=== PATIENT | male | born 1945 | race Caucasian/White ===

== ENCOUNTER → 2019-03-30 | Outpatient (CLI) | payer MEDICARE, BC ==
--- NOTE | 2019-03-30 15:27 | CT ---
EXAMINATION TYPE: CT brain wo con DATE OF EXAM: 03/30/2019 COMPARISON: None HISTORY: 73-year-old male Left hand weakness x3 weeks. TECHNIQUE: Examination was done in axial plane without intravenous contrast. Coronal and sagittal r econstructions performed. CT DLP: 1094 mGycm Automated exposure control for dose reduction was used. FINDINGS: There is no evidence of acute intracranial hemorrhage, acute ischemic changes, mass, mass-effect, or extra-axial fluid collection. There is no effacement of cerebral sulci or basal subarachnoid cister ns. There is no hydrocephalus. There is no midline shift. Boothe-white matter distinction is preserv ed. Mild generalized cerebral cortical atrophy. Prominent skull base artifacts with some artifact extendi ng into the horizontal fissures. Complete opacification left maxillary sinus, left ethmoid air cells, left frontal sinus, and bilatera l sphenoid sinuses. There is some reactive new osteogenesis demonstrated. Mastoid air cells well pneu matized. Orbits and globes appear intact. IMPRESSION: 1. No acute intracranial abnormality seen. If concern for subtle acute to subacute ischemia, follow-u p MRI. 2. 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 Consider ENT referral.
--- NOTE | 2019-03-30 15:45 | US ---
EXAMINATION TYPE: US carotid duplex BILAT DATE OF EXAM: 03/30/2019 COMPARISON: NONE CLINICAL HISTORY: I25.10 CAD, I73.9 PAD, G45.9 TIA. EXAM MEASUREMENTS: RIGHT: Peak Systolic Velocity (PSV) cm/sec ----- Right CCA: 92.0 ----- Right ICA: 71.4 ----- Right ECA: 64.6 ICA/CCA ratio: 0.8 RIGHT: End Diastole cm/sec ----- Right CCA: 28.1 ----- Right ICA: 22.2 ----- Right ECA: 9.9 LEFT: Peak Systolic Velocity (PSV) cm/sec ----- Left CCA: 47.4 ----- Left ICA: 213.4 ----- Left ECA: 50.6 ICA/CCA ratio: 4.5 LEFT: End Diastole cm/sec ----- Left CCA: 12.9 ----- Left ICA: 84.6 ----- Left ECA: 23.0 VERTEBRALS (direction of flow): Right Vertebral: Antegrade Left Vertebral: Antegrade Rhythm: Normal Moderate atherosclerotic changes on right, severe atherosclerotic changes on left with elevated veloc ities suggestive of greater than 70% stenosis. Report called to the referring clinician. IMPRESSION: 1. Bilateral atherosclerotic changes with findings suggestive of severe greater than 70% stenosis of the proximal left ICA Criteria for Assigning % of Stenosis / Diameter reduction (Estimation based on the indirect measurements of the internal carotid artery velocities (ICA PSV). 1. Normal (no stenosis)=ICA PSV < 125 cm/s: ratio < 2.0: ICA EDV<40 cm/s. 2. Less than 50% stenosis=ICA PSV < 125 cm/s: ratio < 2.0: ICA EDV<40 cm/s. 3. 50 to 69% stenosis=ICA PSV of 125 to 230 cm/s: ration 2.0 ? 4.0: ICA EDV 40-100 cm/s. 4. Greater than 70% stenosis to near occlusion= ICA PSV > 230 cm/s: ratio > 4.0: ICA EDV > 100 cm/s. 5. Near occlusion= ICA PSV velocities may be low or undetectable: variable ratio and ICA EDV. 6. Total occlusion=unable to detect flow. A Callahan level critical message alert has been initiated for Ren Avelar MD via the [employer] Critical Results System on 03/30/2019 3:41 PM. This message alert has been sent to Ren Avelar MD vi a the preferences provided by the clinician for the receipt of Radiology Critical Findings. Message I D [id number].
--- NOTE | 2019-03-30 18:24 | ECHOF ---
Referral Reason:I25.10 CAD, I73.9 PAD, G45.9 TIA MEASUREMENTS -------- HEIGHT: 160.0 cm WEIGHT: 59.0 kg BP: 145/73 IVSd: 1.2 cm (0.6 - 1.1) LVIDd: 4.5 cm (3.9 - 5.3) LVPWd: 1.2 cm (0.6 - 1.1) IVSs: 1.7 cm LVIDs: 2.8 cm LVPWs: 1.4 cm LA Diam: 3.1 cm (2.7 - 3.8) RVIDd: 3.1 cm (< 3.3) LAESV Index (A-L): 20.68 ml/m Ao Diam: 3.2 cm (2.0 - 3.7) AV Cusp: 1.8 cm (1.5 - 2.6) EPSS: 1.4 cm MV E Les: 0.83 m/s MV DecT: 277 ms MV A Les: 0.79 m/s MV E/A Ratio: 1.04 AR PHT: 981 ms RAP: 5.00 mmHg RVSP: 40.01 mmHg MV EF SLOPE: 13.37 mm/s (70 - 150) MV EXCURSION: 10.43 mm (> 18.000) TAPSE: 15.97 mm FINDINGS -------- Sinus rhythm. This was a technically good study. The left ventricular size is normal. There is borderline concentric left ventricular hypertrophy. Overall left ventricular systolic function is normal with, an EF between 60 - 65 %. The diastolic filling pattern is normal for the age of the patient 12.61. The right ventricle is normal in size. Normal LA size by volume 22+/-6 ml/m2. The right atrium is normal in size. Interatrial and interventricular septum intact. There is mild aortic valve sclerosis. There is moderate aortic regurgitation. The mitral valve leaflets are mildly thickened. Mild mitral annular calcification present. There is trace to mild mitral regurgitation. Mild tricuspid regurgitation present. There is mild pulmonary hypertension. The right ventricular systolic pressure, as measured by Doppler, is 40.01mmHg. The pulmonic valve was not well visualized. The aortic root size is normal. Normal inferior vena cava with normal inspiratory collapse consistent with estimated right atrial pre ssure of 5 mmHg. There is no pericardial effusion. CONCLUSIONS -------- 1. Sinus rhythm. 2. This was a technically good study. 3. The left ventricular size is normal. 4. There is borderline concentric left ventricular hypertrophy. 5. Overall left ventricular systolic function is normal with, an EF between 60 - 65 %. 6. The diastolic filling pattern is normal for the age of the patient 12.61 7. The right ventricle is normal in size. 8. Normal LA size by volume 22+/-6 ml/m2. 9. The right atrium is normal in size. 10. Interatrial and interventricular septum intact. 11. There is mild aortic valve sclerosis. 12. There is moderate aortic regurgitation. 13. The mitral valve leaflets are mildly thickened. 14. Mild mitral annular calcification present. 15. There is trace to mild mitral regurgitation. 16. Mild tricuspid regurgitation present. 17. There is mild pulmonary hypertension. 18. The right ventricular systolic pressure, as measured by Doppler, is 40.01mmHg. 19. The pulmonic valve was not well visualized. 20. The aortic root size is normal. 21. Normal inferior vena cava with normal inspiratory collapse consistent with estimated right atrial pressure of 5 mmHg. 22. There is no pericardial effusion. [employer]EING [employer]OW BOSS: Linda Pinon RDCS
== END | disposition home or self-care (01) ==
LOC: RADCTMAIN 14:16
PROVIDERS: ATTEND Family Medicine
DX: G45.9 Transient cerebral ischemic attack, unspecified (principal); I08.3 Combined rheumatic disorders of mitral, aortic and tricuspid valves; I27.20 Pulmonary hypertension, unspecified; J34.89 Other specified disorders of nose and nasal sinuses
CPT/HCPCS: 70450; 93306; 93880

== ENCOUNTER 2022-05-15 08:19 | Emergency (ER) | payer MEDICARE, BC ==
[2022-05-15 08:29] VITALS: BP 146/74; PULSE 60; RESP 18; TEMP 97.5
--- NOTE | 2022-05-15 08:47 | ED ---
Skin/Abscess/FB HPI - General Chief complaint: Skin/Abscess/Foreign Body Stated complaint: Facial abcess Time Seen by Provider: 05/15/22 08:31 Source: patient, RN notes reviewed, old records reviewed Mode of arrival: ambulatory Limitations: no limitations - History of Present Illness Initial comments: Presents with a lesion to his chin for one month, has been on antibiotics 2 weeks ago and again prescribed clindamycin on the at urgent care. Does have an appointment with spreader on June 18. Denies any fevers, no drainage. Patient is a smoker. MD complaint: lesion -: month(s) (1) Severity scale (1-10): 6 Associated symptoms: denies other symptoms Treatments Prior to Arrival: antibiotic - Related Data Allergies Allergy/AdvReac Type Severity Reaction Status Date / Time No Known Allergies Allergy Verified 05/15/22 08:29 Review of Systems ROS Statement: Those systems with pertinent positive or pertinent negative responses have been documented in the HPI. ROS Other: All systems not noted in ROS Statement are negative. Past Medical History Past Medical History: Hyperlipidemia, Hypertension History of Any Multi-Drug Resistant Organisms: None Reported Additional Past Surgical History / Comment(s): Stents in legs Past Psychological History: No Psychological Hx Reported Smoking Status: Current every day smoker Past Alcohol Use History: Daily Past Drug Use History: None Reported General Exam Limitations: no limitations General appearance: alert, in no apparent distress Head exam: Present: atraumatic Eye exam: Absent: scleral icterus, conjunctival injection, periorbital swelling ENT exam: Present: mucous membranes moist Neck exam: Absent: tenderness, meningismus, full ROM, lymphadenopathy Respiratory exam: Present: normal lung sounds bilaterally. Absent: respiratory distress, accessory muscle use Cardiovascular Exam: Present: regular rate Neurological exam: Present: alert, oriented X3 Psychiatric exam: Present: normal affect, normal mood Skin exam: Present: warm, dry, normal color, other (1cm solid raised lesion under bottom lip , dried scale in center no erythema or drainage) Course Vital Signs 05/15/22 08:24 Temperature 97.5 F L Pulse Rate 60 Respiratory 18 Rate Blood Pressure 146/74 O2 Sat by Pulse 98 Oximetry Medical Decision Making - Medical Decision Making Patient presents with a lesion to his chin for one month, currently taking clindamycin which is a second course of antibiotics prescribed by urgent care on 05/07. Seen originally by his PCP and he does have an appointment with dermatology June 18. This appears to be a 1cm dermoid cyst that he tried to drain himself resulting in dried scale on lesion. No erythema or drainage or fluctuance. Was pt. sent in by a medical professional or institution? @ -No Did you speak to anyone other than the patient for history? @ -No Did you review nursing and triage notes? @ -Yes I agree Were old charts reviewed? @ -None Differential Diagnosis? @ -dermoid cyst, abscess, cellulitis EKG interpreted by me (3pts min.)? @ -Not applicable X-rays interpreted by me (1pt min.)? @ -Not applicable CT interpreted by me (1pt min.)? @ -Not applicable U/S interpreted by me (1pt. min.)? @ -Not applicable What testing was considered but not performed? (CT, X-rays, U/S, labs)? Why? @None What meds were considered but not given? Why? @ -Antibiotics however patient is currently taking clindamycin prescribed by urgent care Did you discuss the management of the patient with other professionals? @ -None Did you reconcile home meds? @ -No Was smoking cessation discussed for >3mins.? @ -Yes I did discuss with patient that healing times are prolonged in smokers and he should consider cessation Was critical care preformed (if so, how long)? @ -No Were there social determinants of health that impacted care today? How? (Homelessness, low income, unemployed, alcoholism, drug addiction, transportation, low edu. Level, literacy, decrease access to med. care, senior living, rehab)? @ -No Was there de-escalation of care discussed even if they declined? (Discuss DNR or withdrawal of care, Hospice)? @ -None What co-morbidities impacted this encounter? (DM, HTN, Smoking, COPD, CAD, Cancer, CVA, Hep., AIDS, mental health diagnosis, sleep apnea, morbid obesity)? @ -Hypertension, smoking Was patient admitted / discharged? @ -Discharged Undiagnosed new problem with uncertain prognosis? @ -No Drug Therapy requiring intensive monitoring for toxicity (Heparin, Nitro, Insulin, Cardizem)? @ -No Were any procedures done? @ -No Diagnosis/symptom? @ -Dermoid cyst Acute, or Chronic, or Acute on Chronic? @ -Acute Uncomplicated (without systemic symptoms) or Complicated (systemic symptoms)? @ -Uncomplicated Side effects of treatment? @ -none Exacerbation, Progression, or Severe Exacerbation] @ -none Poses a threat to life or bodily function? @ -No Disposition Clinical Impression: Lesion of face Disposition: HOME SELF-CARE Condition: Good Instructions (If sedation given, give patient instructions): Cyst (ED) Additional Instructions: Continue taking the antibiotics as prescribed by urgent care. Follow-up with dermatology as scheduled June 18. Do not pick at lesion. Return to the emergency room with any drainage, increased pain and swelling or fevers. Is patient prescribed a controlled substance at d/c from ED?: No Referrals: Ren Avelar MD [Primary Care Provider] - 1-2 days Time of Disposition: 08:47
== END 2022-05-15 08:54 | disposition home or self-care (01) ==
LOC: EC 08:19
DX: L02.01 Cutaneous abscess of face (principal); I10 Essential (primary) hypertension; F17.200 Nicotine dependence, unspecified, uncomplicated
CPT/HCPCS: 99282

== ENCOUNTER → 2023-04-15 | Outpatient (CLI) | payer MEDICARE ==
--- NOTE | 2023-04-16 09:14 | CA ---
Transthoracic Echo Report Name: Maximino Briones Age: 77 Gender: M : 1945 Exam Date: 04/15/2023 13:29 Exam Location: [place] [facility] Ht (in): 63 Wt (lb): 120 Ordering Physician: Ren Avelar MD Attending/Referring Phys: Rea Lloyd [facility] Refueling Rampman Rylie Bean [facility] Procedure CPT: Indications: I25.10 CARDIOVASCULAR DISEASE UNSPECIFIED Cardiac Hx: Technical Quality: Fair Contrast 1: Total Dose (mL): Contrast 2: Total Dose (mL): MEASUREMENTS (Male / Female) Normal Values 2D ECHO LV Diastolic Diameter PLAX 5.4 cm 4.2 - 5.9 / 3.9 - 5.3 cm LV Systolic Diameter PLAX 4.8 cm IVS Diastolic Thickness 1.0 cm 0.6 - 1.0 / 0.6 - 0.9 cm LVPW Diastolic Thickness 1.0 cm 0.6 - 1.0 / 0.6 - 0.9 cm LV Relative Wall Thickness 0.4 LVOT Diameter 2.0 cm LV Diastolic Volume MOD BP 90.5 cm??? 67 - 155 / 56 - 104 cm??? LV Systolic Volume MOD BP 56.8 cm??? 22 - 58 / 19 - 49 cm??? LV Ejection Fraction MOD BP 37.3 % >= 55 % LV Cardiac Index MOD BP 2080.0 cm???/min???m??? LV Diastolic Volume MOD 4C 88.6 cm??? LV Systolic Volume MOD 4C 52.3 cm??? LV Ejection Fraction MOD 4C 40.9 % LV Cardiac Index MOD 4C 2234.7 cm???/min???m??? LV Diastolic Length 4C 6.9 cm LV Systolic Length 4C 6.4 cm LV Diastolic Volume MOD 2C 90.6 cm??? LV Systolic Volume MOD 2C 61.4 cm??? LV Ejection Fraction MOD 2C 32.2 % LV Cardiac Index MOD 2C 1799.1 cm???/min???m??? LV Diastolic Length 2C 7.1 cm LV Systolic Length 2C 6.5 cm LA Volume 80.3 cm??? 18 - 58 / 22 - 52 cm??? LA Volume Index 51.6 cm???/m??? 16 - 28 cm???/m??? Ascending Aorta Diameter 3.3 cm M-MODE Aortic Root Diameter MM 2.9 cm LA Systolic Diameter MM 4.9 cm LA Ao Ratio MM 1.7 AV Cusp Separation MM 1.2 cm DOPPLER AV Peak Velocity 128.1 cm/s AV Peak Gradient 6.6 mmHg AV Mean Velocity 82.7 cm/s AV Mean Gradient 3.2 mmHg AV Velocity Time Integral 20.3 cm AI Peak Velocity 435.1 cm/s AI Peak Gradient 75.7 mmHg AI Pressure Half Time 717.4 ms LVOT Peak Velocity 116.3 cm/s LVOT Peak Gradient 5.4 mmHg LVOT Velocity Time Integral 19.8 cm LVOT Stroke Volume 64.8 cm??? LVOT Stroke Volume Index 41.6 ml/m??? LVOT Cardiac Index 3995.1 cm???/min???m??? AV Area Cont Eq vti 3.2 cm??? AV Area Cont Eq pk 3.0 cm??? Mitral E Point Velocity 107.3 cm/s MV Deceleration Time 96.1 ms LV E' Lateral Velocity 5.9 cm/s Mitral E to LV E' Lateral Ratio 18.2 LV E' Septal Velocity 5.1 cm/s Mitral E to LV E' Septal Ratio 21.2 TR Peak Velocity 315.8 cm/s TR Peak Gradient 39.9 mmHg Right Atrial Pressure 3.0 mmHg Pulmonary Artery Systolic Pressu 42.9 mmHg Right Ventricular Systolic Press 42.9 mmHg FINDINGS Left Ventricle Left ventricular wall thickness at upper limits of normal. Left ventricular cavity size normal. Left ventricular ejection fraction is estimated at 35-40%. Moderately decreased left ventricular ejection fraction. Right Ventricle Moderate right ventricular dilatation. Moderate pulmonary hypertension. Right Atrium Severe right atrial dilatation. Left Atrium Severely increased left atrial volume. Mildly increased left atrial area. Mitral Valve Mitral valve thickened. Mild mitral annular calcification. Mild mitral regurgitation. Aortic Valve Trileaflet aortic valve. Diffuse thickening of the aortic valve cusps with reduced excursion. Moderate aortic regurgitation. Aortic valve sclerosis. Tricuspid Valve Structurally normal tricuspid valve. Mild tricuspid regurgitation. Pulmonic Valve Structurally normal pulmonic valve. Pericardium Minimal pericardial effusion (normal variant). Aorta Normal size aortic root and proximal ascending aorta. CONCLUSIONS Moderate LV systolic dysfunction Moderate pulmonary hypertension Mild mitral regurgitation with moderate aortic regurgitation Previewed by: Dr. Aubrey Connell MD (Electronically Signed) Final Date: 16 April 2023 09:13
== END | disposition home or self-care (01) ==
LOC: RADECHMAIN 13:26
PROVIDERS: ATTEND Family Medicine
DX: I25.10 Atherosclerotic heart disease of native coronary artery without angina pectoris (principal); I08.0 Rheumatic disorders of both mitral and aortic valves; I27.20 Pulmonary hypertension, unspecified
CPT/HCPCS: 93306

== ENCOUNTER 2023-05-07 16:28 | Inpatient (IN) | payer MEDICARE ==
[2023-05-07] MEDS ORDERED: SODIUM CHLORIDE 0.9% 500 ML 500 ML IV ONE (18:04)
[2023-05-07 18:53] LABS: Basophils % (A) 0 %; Eosinophils # (A) 0.1 k/uL (0-0.7); Eosinophils % (A) 1 %; HCT 39.4 % (39.0-53.0); HGB 13.4 gm/dL (13.0-17.5); Lymphocytes # (A) 1.7 k/uL (1.0-4.8); Lymphocytes % (A) 14 %; MCH 33.3 pg (25.0-35.0); MCV 97.7 fL (80.0-100.0); Mean Platelet Volume 8.6; Monocytes # (A) 0.8 k/uL (0-1.0); Monocytes % (A) 7 %; Neutrophils # (A) 9.3 k/uL (1.3-7.7); Neutrophils % (A) 77 %; Platelet Count 275 k/uL (150-450); RBC 4.03 m/uL (4.30-5.90); RDW 12.6 % (11.5-15.5); WBC 12.1 k/uL (3.8-10.6)
--- NOTE | 2023-05-07 19:00 | XR ---
EXAMINATION TYPE: XR chest 2V DATE OF EXAM: 05/07/2023 COMPARISON: None HISTORY: 77-year-old male confusion, cough, congestion, altered mental status TECHNIQUE: PA and lateral views FINDINGS: Heart upper limits of normal in size. At this regard calcifications. Old right-sided rib fracture def ormities. Mild interstitial prominence of the chronic appearance. No consolidation or pleural effusio n. IMPRESSION: Borderline heart size and suspected underlying COPD. No definite acute process.
[2023-05-07 19:08] LABS: ALT 47 U/L (4-49); AST 31 U/L (17-59); African American GFR (CKD) 60 (>60 ml/min/1.73 sqM); Albumin 3.6 g/dL (3.5-5.0); Alcohol <10 mg/dL; Alkaline Phosphatase 74 U/L (38-126); Anion Gap 12 mmol/L; Blood Urea Nitrogen 27 mg/dL (9-20); Calcium 8.9 mg/dL (8.4-10.2); Carbon Dioxide 23 mmol/L (22-30); Chloride 107 mmol/L (98-107); Glucose 100 mg/dL (74-99); Non-African American GFR(CKD) 52 (>60 ml/min/1.73 sqM); Potassium 4.1 mmol/L (3.5-5.1); Sodium 142 mmol/L (137-145); Total Bilirubin 0.3 mg/dL (0.2-1.3); Total Protein 6.6 g/dL (6.3-8.2)
[2023-05-07 19:09] LABS: Partial Thromboplastin Time 24.1 sec (22.0-30.0); Prothrombin Time 10.9 sec (10.0-12.5)
--- NOTE | 2023-05-07 19:10 | ED ---
General Adult HPI - General Chief complaint: Neuro Symptoms/Deficit Stated complaint: FLU/COVID SYMPTOMS Time Seen by Provider: 05/07/23 17:52 Source: patient, family, RN notes reviewed, old records reviewed Mode of arrival: ambulatory Limitations: no limitations - History of Present Illness Initial comments: 77 yo male presenting with acute confusion. Patient has had cough cold symptoms for the past several weeks. According to the son who is able to give detailed history today he seemed to be more confused. This is an acute change. Patient is alert and oriented 3 in the time my evaluation. He denies headache. Denies pain complaint. Denies focal numbness or weakness. Speech is clear. - Related Data Allergies Allergy/AdvReac Type Severity Reaction Status Date / Time No Known Allergies Allergy Verified 05/15/22 08:29 Review of Systems ROS Statement: Those systems with pertinent positive or pertinent negative responses have been documented in the HPI. ROS Other: All systems not noted in ROS Statement are negative. Past Medical History Past Medical History: Hyperlipidemia, Hypertension History of Any Multi-Drug Resistant Organisms: None Reported Additional Past Surgical History / Comment(s): Stents in legs Past Psychological History: No Psychological Hx Reported Smoking Status: Current every day smoker Past Alcohol Use History: Daily Past Drug Use History: None Reported General Exam Limitations: no limitations General appearance: alert, in no apparent distress Head exam: Present: atraumatic, normocephalic Eye exam: Present: normal appearance, PERRL ENT exam: Present: mucous membranes dry Neck exam: Present: normal inspection. Absent: tenderness, meningismus Respiratory exam: Present: normal lung sounds bilaterally. Absent: respiratory distress, wheezes Cardiovascular Exam: Present: regular rate, normal rhythm GI/Abdominal exam: Present: soft. Absent: distended, tenderness Extremities exam: Present: normal inspection, normal capillary refill Neurological exam: Present: alert, oriented X3, CN II-XII intact. Absent: motor sensory deficit Psychiatric exam: Present: normal affect, normal mood Skin exam: Present: warm, dry, intact Course Vital Signs 05/07/23 16:38 Temperature 98.7 F Pulse Rate 66 Respiratory 16 Rate Blood Pressure 145/79 O2 Sat by Pulse 99 Oximetry Medical Decision Making - Medical Decision Making Was pt. sent in by a medical professional or institution (, PA, PUMP ATTENDANT, urgent care, hospital, or halfway...) When possible be specific @ -[No] Did you speak to anyone other than the patient for history (EMS, parent, family, police, friend...)? What history was obtained from this source @ -[No] Did you review nursing and triage notes (agree or disagree)? Why? @ -[I reviewed and agree with nursing and triage notes] Were old charts reviewed (outside hosp., previous admission, EMS record, old EKG, old radiological studies, urgent care reports/EKG's, halfway records)? Report findings @ -[No old charts were reviewed] Differential Diagnosis (chest pain, altered mental status, abdominal pain women, abdominal pain men, vaginal bleeding, weakness, fever, dyspnea, syncope, headache, dizziness, GI bleed, back pain, seizure, CVA, palpatations, mental health, musculoskeletal)? @ -Differential Altered Mental Status: Hypoglycemia, DKA, hypercapnia, ETOH, overdose, CO poisoning, trauma, myxedema coma, HTN encephalopathy, infection, encephalitis, psychosis, intercranial hemorrhage, hepatic encephalopathy, meningitis, CVA, this is not meant to be an all-inclusive list EKG interpreted by me (3pts min.). @ Sinus rhythm rate of 61, IA interval 173, QRS duration 90, QTC 414 X-rays interpreted by me (1pt min.). @ -CXR neg for acute process CT interpreted by me (1pt min.). @ -CT brain neg for acute ICH U/S interpreted by me (1pt. min.). @ -[None done] What testing was considered but not performed or refused? (CT, X-rays, U/S, labs)? Why? @ -[None] What meds were considered but not given or refused? Why? @ -[None] Did you discuss the management of the patient with other professionals (professionals i.e. , PA, PUMP ATTENDANT, lab, RT, psych nurse, social media marketer, public health nutritionist, teacher, public information officer, welfare case worker)? Give summary @ -Naomi from [facility] Was smoking cessation discussed for >3mins.? @ -[No] Was critical care preformed (if so, how long)? @ -[No] Were there social determinants of health that impacted care today? How? (Homelessness, low income, unemployed, alcoholism, drug addiction, transportation, low edu. Level, literacy, decrease access to med. care, longterm, rehab)? @ -[No] Was there de-escalation of care discussed even if they declined (Discuss DNR or withdrawal of care, Hospice)? DNR status @ -[No] What co-morbidities impacted this encounter? (DM, HTN, Smoking, COPD, CAD, Canc er, CVA, ARF, Chemo, Hep., AIDS, mental health diagnosis, sleep apnea, morbid obesity)? @ - Was patient admitted / discharged? Hospital course, mention meds given and route, prescriptions, significant lab abnormalities, going to OR and other pertinent info. @ -77 yo male with Acute AMS. pt has no focal findings on exam. VSS. Labs wnl with the exception of trop 0.035. this level will be trended. Ct brain without acute process. Pt does test positive for COVID. Will be admitted for monitoring and trended cardiac enzymes Undiagnosed new problem with uncertain prognosis? @ -[No] Drug Therapy requiring intensive monitoring for toxicity (Heparin, Nitro, Insulin, Cardizem)? @ -[No] Were any procedures done? @ -[No] Diagnosis/symptom? @ -[AMS, COVID, trop elevated Acute, or Chronic, or Acute on Chronic? @ -acute Uncomplicated (without systemic symptoms) or Complicated (systemic symptoms)? @ -[complicated Side effects of treatment? @ -[No] Exacerbation, Progression, or Severe Exacerbation? @ -[No] Poses a threat to life or bodily function? How? (Chest pain, [place], [place], pneumonia, PE, COPD, DKA, ARF, appy, cholecystitis, CVA, Diverticulitis, Homicidal, Suicidal, threat to staff... and all critical care pts) @ -[yes, COVID, trop elevated - Lab Data Result diagrams: 05/07/23 18:40 05/07/23 18:40 Lab Results 05/07/23 05/07/23 05/07/23 Range/Units 18:40 18:40 18:40 WBC 12.1 H (3.8-10.6) k/uL RBC 4.03 L (4.30-5.90) m/uL Hgb 13.4 (13.0-17.5) gm/dL Hct 39.4 (39.0-53.0) % MCV 97.7 (80.0-100.0) fL MCH 33.3 (25.0-35.0) pg MCHC 34.0 (31.0-37.0) g/dL RDW 12.6 (11.5-15.5) % Plt Count 275 (150-450) k/uL MPV 8.6 Neutrophils % 77 % Lymphocytes % 14 % Monocytes % 7 % Eosinophils % 1 % Basophils % 0 % Neutrophils # 9.3 H (1.3-7.7) k/uL Lymphocytes # 1.7 (1.0-4.8) k/uL Monocytes # 0.8 (0-1.0) k/uL Eosinophils # 0.1 (0-0.7) k/uL Basophils # 0.0 (0-0.2) k/uL PT 10.9 (10.0-12.5) sec INR 1.0 (<1.2) APTT 24.1 (22.0-30.0) sec Sodium 142 (137-145) mmol/L Potassium 4.1 (3.5-5.1) mmol/L Chloride 107 (98-107) mmol/L Carbon Dioxide 23 (22-30) mmol/L Anion Gap 12 mmol/L BUN 27 H (9-20) mg/dL Creatinine 1.32 H (0.66-1.25) mg/dL Est GFR (CKD-EPI)AfAm 60 (>60 ml/min/1.73 sqM) Est GFR (CKD-EPI)NonAf 52 (>60 ml/min/1.73 sqM) Glucose 100 H (74-99) mg/dL POC Glucose (mg/dL) (70-110) mg/dL POC Glu Flight Test Shop Mechanic ID Calcium 8.9 (8.4-10.2) mg/dL Total Bilirubin 0.3 (0.2-1.3) mg/dL AST 31 (17-59) U/L ALT 47 (4-49) U/L Alkaline Phosphatase 74 (38-126) U/L Troponin I (0.000-0.034) ng/mL Total Protein 6.6 (6.3-8.2) g/dL Albumin 3.6 (3.5-5.0) g/dL Urine Color Urine Appearance (Clear) Urine pH (5.0-8.0) Ur Specific [place] (1.001-1.035) Urine Protein (Negative) Urine Glucose (UA) (Negative) Urine Ketones (Negative) Urine Blood (Negative) Urine Nitrite (Negative) Urine Bilirubin (Negative) Urine Urobilinogen (<2.0) mg/dL Ur Leukocyte Esterase (Negative) Urine RBC (0-5) /hpf Urine WBC (0-5) /hpf Urine Bacteria (None) /hpf Urine Mucus (None) /hpf Urine Opiates Screen (NotDetected) Ur Oxycodone Screen (NotDetected) Urine Methadone Screen (NotDetected) Ur Barbiturates Screen (NotDetected) U Tricyclic Antidepress (NotDetected) Ur Phencyclidine Scrn (NotDetected) Ur Amphetamines Screen (NotDetected) U Methamphetamines Scrn (NotDetected) U Benzodiazepines Scrn (NotDetected) Urine Cocaine Screen (NotDetected) U Marijuana (THC) Screen (NotDetected) Ur Drug Screen Comment Serum Alcohol <10 mg/dL Influenza Type A (PCR) (Not Detectd) Influenza Type B (PCR) (Not Detectd) RSV (PCR) (Not Detectd) SARS-CoV-2 (PCR) (Not Detectd) 05/07/23 05/07/23 05/07/23 Range/Units 18:40 18:40 18:44 WBC (3.8-10.6) k/uL RBC (4.30-5.90) m/uL Hgb (13.0-17.5) gm/dL Hct (39.0-53.0) % MCV (80.0-100.0) fL MCH (25.0-35.0) pg MCHC (31.0-37.0) g/dL RDW (11.5-15.5) % Plt Count (150-450) k/uL MPV Neutrophils % % Lymphocytes % % Monocytes % % Eosinophils % % Basophils % % Neutrophils # (1.3-7.7) k/uL Lymphocytes # (1.0-4.8) k/uL Monocytes # (0-1.0) k/uL Eosinophils # (0-0.7) k/uL Basophils # (0-0.2) k/uL PT (10.0-12.5) sec INR (<1.2) APTT (22.0-30.0) sec Sodium (137-145) mmol/L Potassium (3.5-5.1) mmol/L Chloride (98-107) mmol/L Carbon Dioxide (22-30) mmol/L Anion Gap mmol/L BUN (9-20) mg/dL Creatinine (0.66-1.25) mg/dL Est GFR (CKD-EPI)AfAm (>60 ml/min/1.73 sqM) Est GFR (CKD-EPI)NonAf (>60 ml/min/1.73 sqM) Glucose (74-99) mg/dL POC Glucose (mg/dL) (70-110) mg/dL POC Glu Flight Test [employer] Mechanic ID Calcium (8.4-10.2) mg/dL Total Bilirubin (0.2-1.3) mg/dL AST (17-59) U/L ALT (4-49) U/L Alkaline Phosphatase (38-126) U/L Troponin I 0.035 H* (0.000-0.034) ng/mL Total Protein (6.3-8.2) g/dL Albumin (3.5-5.0) g/dL Urine Color Yellow Urine Appearance Clear (Clear) Urine pH 5.5 (5.0-8.0) Ur Specific [place] 1.029 (1.001-1.035) Urine Protein Trace H (Negative) Urine Glucose (UA) Negative (Negative) Urine Ketones Negative (Negative) Urine Blood Moderate H (Negative) Urine Nitrite Negative (Negative) Urine Bilirubin Negative (Negative) Urine Urobilinogen <2.0 (<2.0) mg/dL Ur Leukocyte Esterase Negative (Negative) Urine RBC 163 H (0-5) /hpf Urine WBC 1 (0-5) /hpf Urine Bacteria Rare H (None) /hpf Urine Mucus Rare H (None) /hpf Urine Opiates Screen Detected H (NotDetected) Ur Oxycodone Screen Not Detected (NotDetected) Urine Methadone Screen Not Detected (NotDetected) Ur Barbiturates Screen Not Detected (NotDetected) U Tricyclic Antidepress Not Detected (NotDetected) Ur Phencyclidine Scrn Not Detected (NotDetected) Ur Amphetamines Screen Not Detected (NotDetected) U Methamphetamines Scrn Not Detected (NotDetected) U Benzodiazepines Scrn Not Detected (NotDetected) Urine Cocaine Screen Not Detected (NotDetected) U Marijuana (THC) Screen Detected H (NotDetected) Ur Drug Screen Comment SEE COMMENT Serum Alcohol mg/dL Influenza Type A (PCR) Not Detected (Not Detectd) Influenza Type B (PCR) Not Detected (Not Detectd) RSV (PCR) Not Detected (Not Detectd) SARS-CoV-2 (PCR) Detected A (Not Detectd) 05/07/23 Range/Units 19:27 WBC (3.8-10.6) k/uL RBC (4.30-5.90) m/uL Hgb (13.0-17.5) gm/dL Hct (39.0-53.0) % MCV (80.0-100.0) fL MCH (25.0-35.0) pg MCHC (31.0-37.0) g/dL RDW (11.5-15.5) % Plt Count (150-450) k/uL MPV Neutrophils % % Lymphocytes % % Monocytes % % Eosinophils % % Basophils % % Neutrophils # (1.3-7.7) k/uL Lymphocytes # (1.0-4.8) k/uL Monocytes # (0-1.0) k/uL Eosinophils # (0-0.7) k/uL Basophils # (0-0.2) k/uL PT (10.0-12.5) sec INR (<1.2) APTT (22.0-30.0) sec Sodium (137-145) mmol/L Potassium (3.5-5.1) mmol/L Chloride (98-107) mmol/L Carbon Dioxide (22-30) mmol/L Anion Gap mmol/L BUN (9-20) mg/dL Creatinine (0.66-1.25) mg/dL Est GFR (CKD-EPI)AfAm (>60 ml/min/1.73 sqM) Est GFR (CKD-EPI)NonAf (>60 ml/min/1.73 sqM) Glucose (74-99) mg/dL POC Glucose (mg/dL) 129 H (70-110) mg/dL POC Glu [employer] Test [employer] Mechanic ID Kumari, Donyele Calcium (8.4-10.2) mg/dL Total Bilirubin (0.2-1.3) mg/dL AST (17-59) U/L ALT (4-49) U/L Alkaline Phosphatase (38-126) U/L Troponin I (0.000-0.034) ng/mL Total Protein (6.3-8.2) g/dL Albumin (3.5-5.0) g/dL Urine Color Urine Appearance (Clear) Urine pH (5.0-8.0) Ur Specific [place] (1.001-1.035) Urine Protein (Negative) Urine Glucose (UA) (Negative) Urine Ketones (Negative) Urine Blood (Negative) Urine Nitrite (Negative) Urine Bilirubin (Negative) Urine Urobilinogen (<2.0) mg/dL Ur Leukocyte Esterase (Negative) Urine RBC (0-5) /hpf Urine WBC (0-5) /hpf Urine Bacteria (None) /hpf Urine Mucus (None) /hpf Urine Opiates Screen (NotDetected) Ur Oxycodone Screen (NotDetected) Urine Methadone Screen (NotDetected) Ur Barbiturates Screen (NotDetected) U Tricyclic Antidepress (NotDetected) Ur Phencyclidine Scrn (NotDetected) Ur Amphetamines Screen (NotDetected) U Methamphetamines Scrn (NotDetected) U Benzodiazepines Scrn (NotDetected) Urine Cocaine Screen (NotDetected) U Marijuana (THC) Screen (NotDetected) Ur Drug Screen Comment Serum Alcohol mg/dL Influenza Type A (PCR) (Not Detectd) Influenza Type B (PCR) (Not Detectd) RSV (PCR) (Not Detectd) SARS-CoV-2 (PCR) (Not Detectd) Disposition Clinical Impression: AMS (altered mental status), COVID-19, Elevated troponin Disposition: ADMITTED IP TO THIS HOSP Condition: Stable Is patient prescribed a controlled substance at d/c from ED?: No Referrals: Ren Avelar MD [Primary Care Provider] - 1-2 days Time of Disposition: 20:35
[2023-05-07 19:29] LABS: Glucose,Whole Blood 129 mg/dL (70-110)
--- NOTE | 2023-05-07 19:43 | CT ---
EXAMINATION TYPE: CT brain wo con CT DLP: 1085.8 mGycm, Automated exposure control for dose reduction was used. DATE OF EXAM: 05/07/2023 7:32 PM COMPARISON: 03/30/2019.. CLINICAL INDICATION:Male, 77 years old with history of Altered mental status, TECHNIQUE: Brain: Axial CT images of the brain were obtained with coronal and sagittal reformats created and rev iewed. Contrast used: None. Oral contrast used: None. FINDINGS: Brain: Extra-axial spaces: No abnormal extra-axial fluid collections. Ventricular system: Within normal limits Cerebral parenchyma: No acute intraparenchymal hemorrhage or mass effect. The melton-white junction is well differentiated. Cerebellum: Unremarkable. Mass effect: No evidence of midline shift. Intracranial vasculature: Atherosclerotic calcifications of the intracranial vessels. Soft tissues: Normal. Calvarium/osseous structures: No depressed skull fracture. Paranasal sinuses and mastoid air cells: Moderate paranasal sinus disease. Visualized orbits: Orbital contents are intact. IMPRESSION: 1. No acute intracranial process. 2. Moderate paranasal sinus disease.
[2023-05-07 20:14] LABS: Appearance,Urine Clear (Clear); Bacteria,Urine Rare /hpf; Bilirubin,Urine Negative (Negative); Blood,Urine Moderate (Negative); Color,Urine Yellow; Glucose,Urine (UA) Negative (Negative); Ketones,Urine Negative (Negative); Leukocyte Esterase,Urine Negative (Negative); Mucus,Urine Rare /hpf; Nitrite,Urine Negative (Negative); PH, Urine 5.5 (5.0-8.0); Protein,Urine Trace (Negative); RBC,Urine 163 /hpf (0-5); Specific Gravity,Urine 1.029 (1.001-1.035); Urobilinogen,Urine <2.0 mg/dL (<2.0); WBC,Urine 1 /hpf (0-5)
[2023-05-07 20:19] LABS: Cocaine Screen,Urine Not Detected (NotDetected); Opiate Screen,Urine Detected (NotDetected); Phencyclidine Screen,Urine Not Detected (NotDetected); Urn Cannabinoid Scrn Detected (NotDetected)
[2023-05-07 20:20] LABS: Amphetamine Screen,Urine Not Detected (NotDetected); Barbiturate Screen,Urine Not Detected (NotDetected); Benzodiazepines Screen,Urine Not Detected (NotDetected); Methadone Screen, Urine Not Detected (NotDetected); Oxycodone Screen, Urine Not Detected (NotDetected); Tricyclic Antidepressant,Urine Not Detected (NotDetected)
[2023-05-07] MEDS ORDERED: ASPIRIN 325 MG TAB PO STA (20:27)
[2023-05-07] MEDS ORDERED: ACETAMINOPHEN TAB 325 MG TAB PO PRN (20:27)
[2023-05-07] MEDS ORDERED: NALOXONE 0.4 MG/ML 1 ML VIAL IV PRN (20:27)
[2023-05-07] MEDS: SODIUM CHLORIDE 0.9% 1,000 ML IV SCH (21:42)
[2023-05-08] MEDS ORDERED: CALCIUM CARBONATE 500 MG CHEWABLE PO PRN (09:39)
[2023-05-08] MEDS ORDERED: ONDANSETRON 4 MG/2 ML VIAL IVP PRN (09:39)
[2023-05-08] MEDS ORDERED: NALOXONE 0.4 MG/ML 1 ML VIAL IV PRN (09:39)
[2023-05-08] MEDS ORDERED: MAG HYDROX/AL HYDROX/SIMETH 30 ML CUP PO PRN (09:39)
[2023-05-08] MEDS ORDERED: MELATONIN 3 MG TABLET PO PRN (09:39)
[2023-05-08] MEDS: SODIUM CHLORIDE 0.9% 1,000 ML IV SCH ×2 (10:12→20:59)
--- NOTE | 2023-05-08 14:17 | P.HPIM ---
History of Present Illness H&P Date: 05/08/23 History of present illness; patient is 77-year-old gentleman with past medical h istory significant for hypertension, hyperlipidemia who presented to the ER because of confusion. Patient has been dealing with cold like symptoms for the last 2 weeks. Patient requiring of nasal congestion. Denies any fever or chills. No complaint of shortness of breath. Denies any chest pain or palpitations. Denies any nausea, vomiting abdominal pain. Today patient son noticed that the patient was more confused. There was no complain of any weakness of any extremity. No complaints of slurred speech. Patient's son did not notice any facial droop. Because his acute confusion, patient brought to the ER Initial lab work done in the ER showed to be placed on Premarin, hemoglobin 13.4 , platelet count 275 sodium 140, potassium 4.1, chloride 107, BUN 27, creatinine 1.32, glucose 100 troponin 0.035 UA done showed nitrite negative, leukocyte esterase negative, Urine drug screen positive for opioids and marijuana Influenza A not detected Influenza B not detected RSV not detected COVID-19 detected EKG done in the ER showed heart rate of 61 , no ST segment elevation or depression seen, no T-wave inversions seen. Chest x-ray done in the ER showed borderline heart size and suspected underlying COPD CT head done showed no acute intracranial process Patient admitted to internal medicine service REVIEW OF SYSTEMS: CONSTITUTIONAL: No fever, no malaise, no fatigue. HEENT: No recent visual problems or hearing problems. Denied any sore throat. CARDIOVASCULAR: No chest pain, orthopnea, PND, no palpitations, no syncope. PULMONARY: No shortness of breath, no cough, no hemoptysis. GASTROINTESTINAL: No diarrhea, no nausea, no vomiting, no abdominal pain. NEUROLOGICAL: No headaches, no weakness, no numbness. HEMATOLOGICAL: Denies any bleeding or petechiae. GENITOURINARY: Denies any burning micturition, frequency, or urgency. MUSCULOSKELETAL/RHEUMATOLOGICAL: Denies any joint pain, swelling, or any muscle pain. ENDOCRINE: Denies any polyuria or polydipsia. The rest of the 14-point review of systems is negative. PHYSICAL EXAMINATION: GENERAL: The patient is alert and oriented x 2-3, not in any acute distress. Well developed, well nourished. HEENT: Pupils are round and equally reacting to light. EOMI. No scleral icterus. No conjunctival pallor. Normocephalic, atraumatic. No pharyngeal erythema. No thyromegaly. CARDIOVASCULAR: S1 and S2 present. No murmurs, rubs, or gallops. PULMONARY: Chest is clear to auscultation, no wheezing or crackles. ABDOMEN: Soft, nontender, nondistended, normoactive bowel sounds. No palpable organomegaly. MUSCULOSKELETAL: No joint swelling or deformity. EXTREMITIES: No cyanosis, clubbing, or pedal edema. NEUROLOGICAL: Gross neurological examination did not reveal any focal deficits. SKIN: No rashes. Assessment and plan Acute metabolic encephalopathy COVID-19 infection Elevated troponin Hypertension Hyperlipidemia Monitor vital signs Monitor CBC Monitor CMP Continue telemetry monitoring Trend troponins Continue droplet plus isolation for COVID-19 infection Encourage use of I-S Aggressive bronchopulmonary hygiene Ordered breathing treatments Patient does not meet criteria for any COVID-19 related therapy at this time Resume home meds Consult neurology Consult cardiology Labs and medication were reviewed.. Continue same treatment. Continue with symptomatic treatment. Resume home medication. Monitor labs and vitals. DVT and GI prophylaxis. Further recommendations as per clinical course of the katerina ent Dictation was produced using [employer] dictation software. please excuse any grammatical, word or spelling errors. Past Medical History Past Medical History: Hyperlipidemia, Hypertension History of Any Multi-Drug Resistant Organisms: None Reported Additional Past Surgical History / Comment(s): Stents in legs Past Psychological History: No Psychological Hx Reported Smoking Status: Current every day smoker Past Alcohol Use History: Daily Past Drug Use History: None Reported Medications and Allergies Home Medications Medication Instructions Recorded Confirmed Type Simvastatin [Zocor] 40 mg PO HS 05/07/23 05/07/23 History ramipriL [Altace] 10 mg PO HS 05/07/23 05/07/23 History Allergies Allergy/AdvReac Type Severity Reaction Status Date / Time No Known Allergies Allergy Verified 05/07/23 21:07 Physical Exam Vitals: Vital Signs Temp Pulse Resp BP Pulse Ox 05/08/23 06:32 97.8 F 51 L 18 109/57 92 L 05/08/23 04:30 65 19 112/65 92 L 05/08/23 02:30 81 18 99/57 97 05/08/23 00:00 51 L 18 117/65 95 05/07/23 22:46 52 L 18 121/61 98 05/07/23 16:38 98.7 F 66 16 145/79 99 Intake and Output 05/07/23 05/08/23 05/08/23 22:59 06:59 14:59 Other: Weight 54.431 kg Results CBC & Chem 7: 05/07/23 18:40 05/07/23 18:40 Labs: Abnormal Lab Results - Last 24 Hours (Table) 05/07/23 05/07/23 05/07/23 Range/Units 18:40 18:40 18:40 WBC 12.1 H (3.8-10.6) k/uL RBC 4.03 L (4.30-5.90) m/uL Neutrophils # 9.3 H (1.3-7.7) k/uL BUN 27 H (9-20) mg/dL Creatinine 1.32 H (0.66-1.25) mg/dL Glucose 100 H (74-99) mg/dL POC Glucose (mg/dL) (70-110) mg/dL Troponin I 0.035 H* (0.000-0.034) ng/mL Urine Protein (Negative) Urine Blood (Negative) Urine RBC (0-5) /hpf Urine Bacteria (None) /hpf Urine Mucus (None) /hpf Urine Opiates Screen (NotDetected) U Marijuana (THC) Screen (NotDetected) SARS-CoV-2 (PCR) (Not Detectd) 05/07/23 05/07/23 05/07/23 Range/Units 18:40 18:44 19:27 WBC (3.8-10.6) k/uL RBC (4.30-5.90) m/uL Neutrophils # (1.3-7.7) k/uL BUN (9-20) mg/dL Creatinine (0.66-1.25) mg/dL Glucose (74-99) mg/dL POC Glucose (mg/dL) 129 H (70-110) mg/dL Troponin I (0.000-0.034) ng/mL Urine Protein Trace H (Negative) Urine Blood Moderate H (Negative) Urine RBC 163 H (0-5) /hpf Urine Bacteria Rare H (None) /hpf Urine Mucus Rare H (None) /hpf Urine Opiates Screen Detected H (NotDetected) U Marijuana (THC) Screen Detected H (NotDetected) SARS-CoV-2 (PCR) Detected A (Not Detectd) 05/07/23 05/07/23 Range/Units 20:51 23:56 WBC (3.8-10.6) k/uL RBC (4.30-5.90) m/uL Neutrophils # (1.3-7.7) k/uL BUN (9-20) mg/dL Creatinine (0.66-1.25) mg/dL Glucose (74-99) mg/dL POC Glucose (mg/dL) (70-110) mg/dL Troponin I 0.036 H* 0.045 H* (0.000-0.034) ng/mL Urine Protein (Negative) Urine Blood (Negative) Urine RBC (0-5) /hpf Urine Bacteria (None) /hpf Urine Mucus (None) /hpf Urine Opiates Screen (NotDetected) U Marijuana (THC) Screen (NotDetected) SARS-CoV-2 (PCR) (Not Detectd)
--- NOTE | 2023-05-08 20:04 | US ---
EXAMINATION TYPE: US carotid duplex BILAT DATE OF EXAM: 05/08/2023 COMPARISON: 03/30/19 CLINICAL INDICATION: Male, 77 years old with history of AMS, confusion, r/o stenosis; AMS TECHNIQUE: Carotid duplex ultrasound examination. Indirect Doppler criteria was utilized. FINDINGS: EXAM MEASUREMENTS: RIGHT: Peak Systolic Velocity (PSV) cm/sec ----- Right CCA: 71.1 ----- Right ICA: 110.2 ----- Right ECA: 104.8 ICA/CCA ratio: 1.5 RIGHT: End Diastole cm/sec ----- Right CCA: 11.5 ----- Right ICA: 29.4 ----- Right ECA: 12.8 LEFT: Peak Systolic Velocity (PSV) cm/sec ----- Left CCA: 52.9 ----- Left ICA: 294.4 ----- Left ECA: 153.1 ICA/CCA ratio: 5.6 LEFT: End Diastole cm/sec ----- Left CCA: 7.6 ----- Left ICA: 90.3 ----- Left ECA: 13.7 VERTEBRALS (direction of flow): Right Vertebral: Antegrade Left Vertebral: Antegrade Rhythm: Normal PERSONAL [employer]ES INSURANCE ADVISOR NOTES: Plaque seen in left bulb and prox ICA. Elevated velocities seen in left prox ICA IMPRESSION: Prominent atherosclerotic change at the left bifurcation with measurements indicating a severe, great er than 70% proximal left ICA stenosis. Criteria for Assigning % of Stenosis / Diameter reduction (Estimation based on the indirect measurements of the internal carotid artery velocities (ICA PSV). 1. Normal (no stenosis)=ICA PSV < 125 cm/s: ratio < 2.0: ICA EDV<40 cm/s. 2. Less than 50% stenosis=ICA PSV < 125 cm/s: ratio < 2.0: ICA EDV<40 cm/s. 3. 50 to 69% stenosis=ICA PSV of 125 to 230 cm/s: ration 2.0 ? 4.0: ICA EDV 40-100 cm/s. 4. Greater than 70% stenosis to near occlusion= ICA PSV > 230 cm/s: ratio > 4.0: ICA EDV > 100 cm/s. 5. Near occlusion= ICA PSV velocities may be low or undetectable: variable ratio and ICA EDV. 6. Total occlusion=unable to detect flow.
[2023-05-08] MEDS: ATORVASTATIN 20 MG TAB PO SCH (20:59)
[2023-05-08] MEDS: lisinopriL 20 MG TAB PO SCH (20:59)
[2023-05-09] MEDS: SODIUM CHLORIDE 0.9% 1,000 ML IV SCH (07:52)
[2023-05-09 07:55] LABS: Basophils % (A) 0 %; Eosinophils # (A) 0.2 k/uL (0-0.7); Eosinophils % (A) 2 %; HCT 39.7 % (39.0-53.0); Lymphocytes # (A) 1.7 k/uL (1.0-4.8); Lymphocytes % (A) 20 %; MCH 32.8 pg (25.0-35.0); MCHC 32.7 g/dL (31.0-37.0); MCV 100.4 fL (80.0-100.0); Mean Platelet Volume 8.6; Monocytes # (A) 0.6 k/uL (0-1.0); Monocytes % (A) 7 %; Neutrophils % (A) 70 %; Platelet Count 243 k/uL (150-450); RBC 3.95 m/uL (4.30-5.90); RDW 12.1 % (11.5-15.5); WBC 8.6 k/uL (3.8-10.6)
[2023-05-09] MEDS ORDERED: HEPARIN SODIUM 1,000 UN/ML (10ML VL) IV ONE (09:37)
[2023-05-09] MEDS ORDERED: HEPARIN SODIUM 1,000 UN/ML (10ML VL) IV PRN (09:37)
--- NOTE | 2023-05-09 09:55 | P.CNNES ---
History of Present Illness Consult date: 05/08/23 Requesting physician: Tarik Lackey Reason for Consult: AMS History of Present Illness: Patient is a 77-year-old male came to the hospital yesterday at 4:28 PM for altered mental status. Patient tells me that he came to the hospital because he could not think right, could not think straight, going on for last 3-4 days. Patient states that he lives with his , and does not use any assistive device. He denies any focal numbness or tingling or weakness anywhere visual problems, slurred speech or droopy face or headache. Patient does not offer much complaints at this time. Patient states that he received a flu shot about 3 weeks ago and then got sick afterwards. Vital signs on arrival blood pressure 145/79, pulse rate 66, temperature 98.7. Blood test shows WBC 12.1, hemoglobin 13.4, platelets are normal, PT/PTT normal, electrolytes normal, BUN 27, creatinine 1.32. Hepatic panel is normal, troponin mildly elevated. UA shows moderate blood, and 160 RBCs. During drug screen positive for opiates, marijuana. Influenza screen, RSV negative, but murray virus PCR positive. CT head revealed no acute intracranial process. Moderate paranasal sinus disease. I personally reviewed CT head, agree with the findings, however the paranasal sinuses involvement is very significant. There is complete opacification of the left maxillary in the left frontal sinuses. Significant opacification of the ethmoid air cells bilaterally, and air fluid level in the sphenoid sinuses. The sum haziness of the mastoid air cells as well. Excessive cerumen noticed in the right external auditory canal.. Chest x-ray revealed borderline heart size and suspect underlying COPD. No definite acute process. EKG shows sinus rhythm with sinus arrhythmia. Review of Systems As mentioned in detail in HPI. All other review of systems noncontributory. Past Medical History Past Medical History: Hyperlipidemia, Hypertension History of Any Multi-Drug Resistant Organisms: None Reported Additional Past Surgical History / Comment(s): Stents in legs Past Psychological History: No Psychological Hx Reported Smoking Status: Current every day smoker Past Alcohol Use History: Daily Past Drug Use History: None Reported Medications and Allergies Home Medications Medication Instructions Recorded Confirmed Type Simvastatin [Zocor] 40 mg PO HS 05/07/23 05/07/23 History ramipriL [Altace] 10 mg PO HS 05/07/23 05/07/23 History Allergies Allergy/AdvReac Type Severity Reaction Status Date / Time No Known Allergies Allergy Verified 05/07/23 21:07 Physical Examination - Vital Signs Vital Signs: Vital Signs Temp Pulse Resp BP Pulse Ox 05/08/23 16:00 59 L 18 128/72 05/08/23 15:00 49 L 18 117/63 05/08/23 14:00 53 L 18 120/68 05/08/23 13:00 51 L 18 121/74 96 05/08/23 12:04 78 18 118/70 98 05/08/23 12:00 45 L 18 114/53 96 05/08/23 11:00 49 L 16 114/53 95 05/08/23 10:00 50 L 17 90/52 95 05/08/23 09:00 60 18 89/51 92 L 05/08/23 08:00 75 16 109/57 93 L 05/08/23 07:00 51 L 17 109/57 94 L 05/08/23 06:32 97.8 F 51 L 18 109/57 92 L 05/08/23 06:00 43 L 13 112/65 05/08/23 05:00 46 L 17 112/65 97 05/08/23 04:30 65 19 112/65 92 L 05/08/23 02:30 81 18 99/57 97 05/08/23 00:00 51 L 18 117/65 95 05/07/23 22:46 52 L 18 121/61 98 Patient is an elderly male, in no acute distress. Patient is alert awake. On asking current date, patient tells me his date of . He then said it was the year and that he is in [facility] in [facility]. He knows name of the current season Mr. Phillips and believes it is a fall season. He believes that the coming public holiday is the new year (not mentioned about Steven). Speech is mildly hoarse and language functions are normal. Patient can name and repeat very well. No aphasia or dysarthria. Attention, concentration is slightly impaired and fund of knowledge is also limited because of confusion. On cranial nerve examination, pupils are equal, round and reacting to light, visual tejeda are full on confrontation, with no neglect on double simultaneous stimulation. Extraocular muscles are intact with no nystagmus. Patient has slight left facial asymmetry, but appears his baseline facial expression. His tongue protrudes to the midline. Palatal elevation and sensation normal, hearing is moderately decreased and shoulder shrug normal, facial sensation normal. On muscle strength testing, there is no pronator drift and the strength is normal in arms and legs distally and proximally. Deep tendon reflexes are symmetric, but somewhat hypoactive and plantars downgoing bilaterally. Sensory to touch is equal with no neglect on double simultaneous stimulation. Cerebellar function showed no ataxia for [id number] testing. No dysdiadochokinesia. No ataxia for [id number] testing on either side. Tone and bulk of muscles normal. Gait deferred.. On general examination, there is no carotid bruit or murmur, S1-S2 audible. Chest is clear on consultation. Abdomen is soft nontender. No organomegaly, bowel sounds present. Peripheral pulses are present. No peripheral edema. Results - Laboratory Findings CBC and BMP: 05/09/23 07:03 05/07/23 18:40 Abnormal Lab Findings: Abnormal Labs 05/07/23 05/07/23 05/07/23 18:40 18:40 18:40 WBC 12.1 H RBC 4.03 L Neutrophils # 9.3 H BUN 27 H Creatinine 1.32 H Glucose 100 H POC Glucose (mg/dL) Troponin I 0.035 H* Urine Protein Urine Blood Urine RBC Urine Bacteria Urine Mucus Urine Opiates Screen U Marijuana (THC) Screen SARS-CoV-2 (PCR) 05/07/23 05/07/23 05/07/23 18:40 18:44 19:27 WBC RBC Neutrophils # BUN Creatinine Glucose POC Glucose (mg/dL) 129 H Troponin I Urine Protein Trace H Urine Blood Moderate H Urine RBC 163 H Urine Bacteria Rare H Urine Mucus Rare H Urine Opiates Screen Detected H U Marijuana (THC) Screen Detected H SARS-CoV-2 (PCR) Detected A 05/07/23 05/07/23 20:51 23:56 WBC RBC Neutrophils # BUN Creatinine Glucose POC Glucose (mg/dL) Troponin I 0.036 H* 0.045 H* Urine Protein Urine Blood Urine RBC Urine Bacteria Urine Mucus Urine Opiates Screen U Marijuana (THC) Screen SARS-CoV-2 (PCR) Assessment and Plan Assessment: * Altered mental status, likely due to acute metabolic encephalopathy. Reasons multifactorial as mentioned below. * Acute Covid-19 infection * Acute, severe pansinusitis, with complete opacification of the left maxillary, left frontal sinuses, with significant involvement of bilateral ethmoid air cells and air fluid level in the sphenoid sinuses. * Impacted cerumen right external auditory canal * Elevated troponin, cardiology on board * Marijuana use Plan: * Carotid Doppler, rule out stenosis * B12, folate, TSH. * Patient currently not on any antibiotics. Recommend starting Augmentin for severe pansinusitis. * Other medical management as per IM/cardiology. * I will discuss with patient's to get collateral history. * Neurology will follow. Thank you for the consult.
[2023-05-09] MEDS: HEPARIN SOD,PORK IN 0.45% NACL 25,000 UNIT in 0.45% NACL 1 250ML.BAG IV SCH (09:59)
[2023-05-09] MEDS ORDERED: ASPIRIN 81 MG PO STA (10:01)
--- NOTE | 2023-05-09 10:09 | P.PN ---
Subjective Progress Note Date: 05/09/23 Patient was seen for a follow-up. Patient is laying comfortably in bed. Offers no complaints. He feels much better. I spoke to patient's on the phone. She mentioned that patient and she herself, both suffered from a flu about 2-1/2 weeks ago. She further mentioned that since , 05/06/2023, he has been acting strange, "out of it", "not all together there". He could not put words together properly. This is the reason that she brought him to the hospital. Patient's reports that he does take aspirin 81 mg daily, although it is not listed in his home medication list. She mentions that patient has smoked 1 pack per day for 50 years, cutback to smoking half pack per day in the last 4-5 months. He does drink 2 beer per day, not a heavy drinker. He smokes marijuana once in a while. Denies any hypertension or diabetes. Objective - Vital Signs Vital signs: Vital Signs Temp 98.6 F 05/09/23 07:49 Pulse 54 L 05/09/23 07:49 Resp 22 05/09/23 09:31 BP 122/69 05/09/23 07:49 Pulse Ox 94 L 05/09/23 09:31 FiO2 Intake & Output 05/08/23 05/09/23 05/09/23 18:59 06:59 18:59 Intake Total 118 360 Balance 118 360 Weight 54.431 kg Intake: Oral 118 360 Other: Voiding Method Toilet Toilet Urinal Urinal # Voids 1 1 - Exam Patient is alert and awake in no distress. Examination deferred. Face is symmetric. - Labs CBC & Chem 7: 05/10/23 05:31 05/10/23 05:31 Labs: Abnormal Lab Results - Last 24 Hours (Table) 05/09/23 Range/Units 07:03 RBC 3.95 L (4.30-5.90) m/uL MCV 100.4 H (80.0-100.0) fL Assessment and Plan Assessment: * Altered mental status, likely due to acute metabolic encephalopathy. Reasons multifactorial as mentioned below. * Speech difficulty, rule out stroke/TIA * Left ICA stenosis, severe, > 70% proximal left ICA, probably symptomatic. * Acute Covid-19 infection * Acute, severe pansinusitis, with complete opacification of the left maxillary, left frontal sinuses, with significant involvement of bilateral ethmoid air cells and air fluid level in the sphenoid sinuses. * Impacted cerumen right external auditory canal * Elevated troponin, cardiology on board * Tobacco use * Marijuana use Plan: * Carotid Doppler revealed severe, greater than 70% proximal left ICA stenosis. Antegrade flow in both vertebral arteries. * Consult vascular surgery for severe left ICA stenosis, probably symptomatic * Patient to receive aspirin 324 mg 1 dose, and then 81 mg daily. Patient was on aspirin 81 mg daily at home. * Cardiology has seen the patient, also started on IV heparin for elevated cardiac enzymes. Most recent PTT 41.2. * Check MRI of the brain, evaluate for acute stroke. * B12 571, folate 10.8, TSH 2.18. All normal * Patient currently not on any antibiotics. Recommend starting Augmentin for severe pansinusitis. * Other medical management as per IM/cardiology. * Recommend complete tobacco cessation. * Discussed with patient's in detail.
[2023-05-09] MEDS: AMOXIC-POT CLAV 875-125MG 1 EACH TAB PO SCH ×2 (10:14→20:07)
[2023-05-09] MEDS ORDERED: ALPRAZolam 0.25 MG TAB PO PRN (10:22)
[2023-05-09 10:28] LABS: Basophils % (A) 0 %; Eosinophils # (A) 0.1 k/uL (0-0.7); Eosinophils % (A) 1 %; HCT 35.8 % (39.0-53.0); HGB 12.5 gm/dL (13.0-17.5); Lymphocytes # (A) 1.5 k/uL (1.0-4.8); Lymphocytes % (A) 15 %; MCH 34.5 pg (25.0-35.0); MCHC 34.7 g/dL (31.0-37.0); MCV 99.2 fL (80.0-100.0); Mean Platelet Volume 8.2; Monocytes # (A) 0.6 k/uL (0-1.0); Monocytes % (A) 7 %; Neutrophils # (A) 7.4 k/uL (1.3-7.7); Neutrophils % (A) 75 %; Platelet Count 270 k/uL (150-450); RBC 3.61 m/uL (4.30-5.90); RDW 12.2 % (11.5-15.5); WBC 9.9 k/uL (3.8-10.6)
[2023-05-09 10:42] LABS: Partial Thromboplastin Time 25.1 sec (22.0-30.0); Prothrombin Time 11.2 sec (10.0-12.5)
[2023-05-09] MEDS: NICOTINE 21MG/24HR PATCH TRANSDERM SCH (10:56)
[2023-05-09 11:37] LABS: ALT 36 U/L (4-49); AST 29 U/L (17-59); African American GFR (CKD) 69 (>60 ml/min/1.73 sqM); Alkaline Phosphatase 76 U/L (38-126); Anion Gap 9 mmol/L; Blood Urea Nitrogen 18 mg/dL (9-20); Calcium 7.9 mg/dL (8.4-10.2); Carbon Dioxide 20 mmol/L (22-30); Chloride 112 mmol/L (98-107); Glucose 77 mg/dL (74-99); Non-African American GFR(CKD) 60 (>60 ml/min/1.73 sqM); Potassium 4.4 mmol/L (3.5-5.1); Sodium 141 mmol/L (137-145); Total Bilirubin 0.6 mg/dL (0.2-1.3); Total Protein 5.7 g/dL (6.3-8.2)
--- NOTE | 2023-05-09 12:38 | P.CRDCN ---
History of Present Illness Consult date: 05/09/23 Reason for Consult (text): Elevated troponin History of present illness: This is Major Moise NP, I'm dictating on behalf of Dr. Caba's H&P and A&P The patient was interviewed and examined. HPI: Patient is a pleasant 77-year-old male who presented to the hospital with altered mental status, cough and cold symptoms for the last several weeks. Altered mental status was reported by the patient's son. The time the patient arrived to the emergency department he was alert and oriented 3. Patient had an EKG done at that time that showed normal sinus rhythm with no ST or T wave changes. Patient had troponins drawn which did demonstrate mild elevation. Cardiology was consulted secondary to the troponin elevation. Patient was also found to be positive for COVID-19 infection. Patient's past medical history is significant for hypertension, and hyperlipidemia. Upon evaluation this morning, the patient's reporting no chest pain. He is reporting shortness of breath with ambulation. No dizziness, no heart palpitations, no syncope. ROS: [No fever, chills, or rigors] [Positive for cough, phlegm, or expectoration] [no nausea, vomiting, or diarrhea] [no hematuria, dysuria] [no musculoskelatal complaints] [no strokes or seizures] [no skin lesions] EXAMINATION: Patient had limited interview/exam secondary to active Covid infection. REVIEW OF LABS, ECG & MEDICAL DATA: LABS: White count 9.9, hemoglobin 12.5, platelets 270, d-dimer 1.03, sodium 141, potassium 4.4, BUN 18, creatinine 1.17, troponin-0.035, 0.036, 0.045, TSH 2.18 EKG: Sinus mechanism with arrhythmia IMAGING: Chest x-ray was 20 07/06/2022 demonstrates borderline heart size and suspected underlying COPD, no definite acute process. Computed tomography scan of the brain dated 05/07/2023 demonstrates no acute intracranial process, moderate paranasal sinus disease. Carotid Dopplers dated 05/08/2023 demonstrate prominent atherosclerotic change at the left bifurcation with measurements indicating a severe, greater than 70% proximal left ICA stenosis. VITALS: Temp 98.6, pulse 54, respirations 20, blood pressure 122/69, O2 saturation 92% on room air IMPRESSION: 1. COVID-19 infection 2. Elevated troponin. 3. Shortness of breath 4. Sinus bradycardia PLAN: Check d-dimer. Start heparin drip per ACS protocol. Further recommendations based on patient's clinical course. Thank you for the consult and allowing us to participate in the care of this patient. Past Medical History Past Medical History: Hyperlipidemia, Hypertension History of Any Multi-Drug Resistant Organisms: None Reported Additional Past Surgical History / Comment(s): Stents in legs Past Psychological History: No Psychological Hx Reported Smoking Status: Current every day smoker Past Alcohol Use History: Daily Past Drug Use History: None Reported Medications and Allergies Home Medications Medication Instructions Recorded Confirmed Type Simvastatin [Zocor] 40 mg PO HS 05/07/23 05/07/23 History ramipriL [Altace] 10 mg PO HS 05/07/23 05/07/23 History Allergies Allergy/AdvReac Type Severity Reaction Status Date / Time No Known Allergies Allergy Verified 05/07/23 21:07 Physical Exam Vitals: Vital Signs Temp Pulse Pulse Resp BP BP Pulse Ox 05/09/23 11:12 98.6 F 52 L 22 133/67 96 05/09/23 09:31 22 94 L 05/09/23 09:25 24 87 L 05/09/23 07:49 98.6 F 54 L 20 122/69 92 L 05/09/23 04:00 98.4 F 62 18 129/63 93 L 05/09/23 00:00 98.0 F 53 L 18 117/54 94 L 05/08/23 20:45 97.9 F 60 18 121/60 94 L 05/08/23 19:07 78 18 118/74 98 05/08/23 16:00 59 L 18 128/72 05/08/23 15:00 49 L 18 117/63 05/08/23 14:00 53 L 18 120/68 05/08/23 13:00 51 L 18 121/74 96 Intake and Output 05/08/23 05/09/23 05/09/23 22:59 06:59 14:59 Intake Total 118 360 Balance 118 360 Intake: Oral 118 360 Other: Voiding Method Toilet Toilet Toilet Urinal Urinal Urinal # Voids 1 1 Results 05/09/23 09:54 05/09/23 07:03 Cardiac Enzymes 05/09/23 Range/Units 07:03 AST 29 (17-59) U/L Coagulation 05/09/23 Range/Units 09:54 PT 11.2 (10.0-12.5) sec APTT 25.1 (22.0-30.0) sec CBC 05/09/23 05/09/23 Range/Units 07:03 09:54 WBC 8.6 9.9 (3.8-10.6) k/uL RBC 3.95 L 3.61 L (4.30-5.90) m/uL Hgb 13.0 12.5 L (13.0-17.5) gm/dL Hct 39.7 35.8 L (39.0-53.0) % Plt Count 243 270 (150-450) k/uL Comprehensive Metabolic Panel 05/09/23 Range/Units 07:03 Sodium 141 (137-145) mmol/L Potassium 4.4 (3.5-5.1) mmol/L Chloride 112 H (98-107) mmol/L Carbon Dioxide 20 L (22-30) mmol/L BUN 18 (9-20) mg/dL Creatinine 1.17 (0.66-1.25) mg/dL Glucose 77 (74-99) mg/dL Calcium 7.9 L (8.4-10.2) mg/dL AST 29 (17-59) U/L ALT 36 (4-49) U/L Alkaline Phosphatase 76 (38-126) U/L Total Protein 5.7 L (6.3-8.2) g/dL Albumin 3.0 L (3.5-5.0) g/dL Current Medications Generic Name Dose Route Start Last Admin Trade Name Freq PRN Reason Stop Dose Admin Acetaminophen 650 mg 05/07/23 20:27 Acetaminophen Tab 325 Mg Tab PO Q6HR PRN Mild Pain or Fever > 100.5 Al Hydroxide/Mg Hydroxide 15 ml 05/08/23 09:39 Mag Hydrox/Al Hydrox/Simeth 30 Ml Cup PO Q6HR PRN Indigestion Alprazolam 0.25 mg 05/09/23 10:22 Alprazolam 0.25 Mg Tab PO Q8HR PRN Anxiety Amoxicillin/Clavulanate Potassium 1 each 05/09/23 10:00 05/09/23 10:14 Amoxic-Pot Clav 875-125mg 1 Each Tab PO 05/19/23 10:01 1 each Q12HR SERJIO Administration Protocol Aspirin 81 mg 05/10/23 09:00 Aspirin 81 Mg PO DAILY SERJIO Atorvastatin Calcium 20 mg 05/08/23 21:00 05/08/23 20:59 Atorvastatin 20 Mg Tab PO 20 mg HS SERJIO Administration Calcium Carbonate/Glycine 1,000 mg 05/08/23 09:39 Calcium Carbonate 500 Mg Chewable PO Q4HR PRN Dyspepsia Heparin Sodium (Porcine) 0 unit 05/09/23 09:37 Heparin Sodium 1,000 Un/Ml (10ml Vl) IV PER PROTOCOL PRN Low PTT Protocol Heparin Sodium/Sodium Chloride 250 mls @ 6.532 mls/hr 05/09/23 09:45 05/09/23 09:59 25,000 unit/ Sodium Chloride IV 12 units/kg/hr .Q24H SERJIO 6.532 mls/hr Administration Protocol 12 UNITS/KG/HR Lisinopril 40 mg 05/08/23 21:00 05/08/23 20:59 Lisinopril 20 Mg Tab PO 40 mg HS SERJIO Administration Melatonin 3 mg 05/08/23 09:39 Melatonin 3 Mg Tablet PO HS PRN Insomnia Naloxone HCl 0.2 mg 05/07/23 20:27 Naloxone 0.4 Mg/Ml 1 Ml Vial IV Q2M PRN Opioid Reversal Naloxone HCl 0.2 mg 05/08/23 09:39 Naloxone 0.4 Mg/Ml 1 Ml Vial IV Q2M PRN Opioid Reversal Nicotine 1 patch 05/09/23 10:30 05/09/23 10:56 Nicotine 21mg/24hr Patch TRANSDERM 1 patch DAILY SERJIO Administration Ondansetron HCl 4 mg 05/08/23 09:39 Ondansetron 4 Mg/2 Ml Vial IVP Q8HR PRN Nausea And Vomiting Intake and Output 05/08/23 05/09/23 05/09/23 22:59 06:59 14:59 Intake Total 118 360 Balance 118 360 Intake: Oral 118 360 Other: Voiding Method Toilet Toilet Toilet Urinal Urinal Urinal # Voids 1 1 05/09/23 09:54 05/09/23 07:03
--- NOTE | 2023-05-09 12:52 | P.PN ---
Subjective Progress Note Date: 05/10/23 patient is 77-year-old gentleman with past medical history significant for hypertension, hyperlipidemia who presented to the ER because of confusion. Patient has been dealing with cold like symptoms for the last 2 weeks. Patient requiring of nasal congestion. Denies any fever or chills. No complaint of shortness of breath. Denies any chest pain or palpitations. Denies any nausea, vomiting abdominal pain. Today patient son noticed that the patient was more confused. There was no complain of any weakness of any extremity. No complaints of slurred speech. Patient's son did not notice any facial droop. Because his acute confusion, patient brought to the ER Initial lab work done in the ER showed to be placed on Premarin, hemoglobin 13.4, platelet count 275 sodium 140, potassium 4.1, chloride 107, BUN 27, creatinine 1.32, glucose 100 troponin 0.035 UA done showed nitrite negative, leukocyte esterase negative, Urine drug screen positive for opioids and marijuana Influenza A not detected Influenza B not detected RSV not detected COVID-19 detected EKG done in the ER showed heart rate of 61 , no ST segment elevation or depression seen, no T-wave inversions seen. Chest x-ray done in the ER showed borderline heart size and suspected underlying COPD CT head done showed no acute intracranial process Patient admitted to internal medicine service 05/09. Patient seen and examined. Patient mental status improved. Answering questions appropriately, only gets confused about a year. Moving all extremities. Denies any chest pain at this time. Vital signs Stable REVIEW OF SYSTEMS: CONSTITUTIONAL: No fever, no malaise,. CARDIOVASCULAR: No chest pain, no palpitations, no syncope. PULMONARY: No shortness of breath, no cough, GASTROINTESTINAL: No diarrhea, no nausea, no vomiting, no abdominal pain. NEUROLOGICAL: No headaches, no weakness, PHYSICAL EXAMINATION: GENERAL: The patient is alert and oriented x3, not in any acute distress. Well developed, well nourished. HEENT: Pupils are round and equally reacting to light. EOMI. No scleral icterus. No conjunctival pallor. Normocephalic, atraumatic. No pharyngeal erythema. No thyromegaly. CARDIOVASCULAR: S1 and S2 present. No murmurs, rubs, or gallops. PULMONARY: Chest is clear to auscultation, no wheezing or crackles. ABDOMEN: Soft, nontender, nondistended, normoactive bowel sounds. No palpable organomegaly. MUSCULOSKELETAL: No joint swelling or deformity. EXTREMITIES: No cyanosis, clubbing, or pedal edema. NEUROLOGICAL: Gross neurological examination did not reveal any focal deficits. SKIN: No rashes. Assessment and plan Acute metabolic encephalopathy Left ICA stenosis COVID-19 infection Left pansinusitis Elevated troponin Hypertension Hyperlipidemia Monitor vital signs Monitor CBC Monitor CMP Continue telemetry monitoring Trend troponins Continue droplet plus isolation for COVID-19 infection Encourage use of I-S Aggressive bronchopulmonary hygiene Continue pharmacy dose heparin MRI brain ordered Continue Augmentin for pansinusitis Patient does not meet criteria for any COVID-19 related therapy at this time Neurology evaluated the patient, recommended vascular surgery evaluation for left ICA stenosis Cardiology following In regards to hypertension continue lisinopril Regards to hyperlipidemia continue Lipitor Labs and medication were reviewed.. Continue same treatment. Continue with symptomatic treatment. Resume home medication. Monitor labs and vitals. DVT and GI prophylaxis. Further recommendations as per clinical course of the patient Dictation was produced using [employer] dictation software. please excuse any grammatical, word or spelling errors. Objective - Vital Signs Vital signs: Vital Signs Temp 98.6 F 05/09/23 11:12 Pulse 52 L 05/09/23 11:12 Resp 22 05/09/23 11:12 BP 133/67 05/09/23 11:12 Pulse Ox 96 05/09/23 11:12 FiO2 Intake & Output 05/08/23 05/09/23 05/09/23 18:59 06:59 18:59 Intake Total 118 360 Balance 118 360 Weight 54.431 kg Intake: Oral 118 360 Other: Voiding Method Toilet Toilet Urinal Urinal # Voids 1 1 - Labs CBC & Chem 7: 05/09/23 09:54 05/09/23 07:03 Labs: Abnormal Lab Results - Last 24 Hours (Table) 05/09/23 05/09/23 05/09/23 Range/Units 07:03 07:03 09:54 RBC 3.95 L 3.61 L (4.30-5.90) m/uL Hgb 12.5 L (13.0-17.5) gm/dL Hct 35.8 L (39.0-53.0) % MCV 100.4 H (80.0-100.0) fL D-Dimer (<0.60) mg/L FEU Chloride 112 H (98-107) mmol/L Carbon Dioxide 20 L (22-30) mmol/L Calcium 7.9 L (8.4-10.2) mg/dL Total Protein 5.7 L (6.3-8.2) g/dL Albumin 3.0 L (3.5-5.0) g/dL 05/09/23 Range/Units 09:54 RBC (4.30-5.90) m/uL Hgb (13.0-17.5) gm/dL Hct (39.0-53.0) % MCV (80.0-100.0) fL D-Dimer 1.03 H (<0.60) mg/L FEU Chloride (98-107) mmol/L Carbon Dioxide (22-30) mmol/L Calcium (8.4-10.2) mg/dL Total Protein (6.3-8.2) g/dL Albumin (3.5-5.0) g/dL
--- NOTE | 2023-05-09 14:06 | CT ---
EXAMINATION TYPE: CT chest angio for PE DATE OF EXAM: 05/09/2023 COMPARISON: None HISTORY: 77 year-old male shortness of breath, Dyspnea TECHNIQUE: Contiguous axial scanning of the chest performed with IV Contrast, patient injected with 1 00 ml mL of Isovue 370. Coronal and sagittal MIP reconstructions performed. CT DLP: 207.3 mGycm Automated exposure control for dose reduction was used. FINDINGS: There is mild generalized anasarca unchanged. Heart borderline enlarged. No flattening of the interventricular septum other prominent reflux of con trast into the hepatic veins. Coronary calcifications are present. Ectatic aortic root at 3.8 cm. Ectatic ascending aorta 3.6 cm. Mild atherosclerotic arch calcificatio ns. Contrast has not made its way to the aorta. No obvious thoracic lymphadenopathy. Mildly enlarged caliber to the main right and left pulmonary arteries measuring up to 2.7 cm suggesti ng underlying pulmonary arterial hypertension. There is breathing motion artifact limiting the evaluation but no definite pulmonary embolus seen. Diffuse septal lines superimposed on at least mild emphysema. Central interstitial thickening as well . There is trace bilateral pleural effusions. Minimal groundglass is beginning to develop in the uppe r lobes. No lizzeth consolidation. 1 cm and 5 mm nodularity periphery of the left base can be reassesse d at follow-up. Visualized upper abdomen shows no gross abnormality. Bones: No osseous destructive process. IMPRESSION: 1. BREATHING MOTION ARTIFACT LIMITING THE EXAM. NO DEFINITE PULMONARY EMBOLUS. 2. GENERALIZED ANASARCA, TRACE BILATERAL PLEURAL EFFUSIONS, PULMONARY ARTERIAL HYPERTENSION, REFLUXIN G CONTRAST INTO THE HEPATIC VEINS, DIFFUSE SEPTAL LINES, AND SOME DEVELOPING GROUNDGLASS IN THE UPPER LUNGS. CONSTELLATION OF FINDINGS SUGGEST CHF WITH MILD INTERSTITIAL PULMONARY EDEMA.
--- NOTE | 2023-05-09 16:11 | US ---
EXAMINATION TYPE: US venous doppler duplex LE DATE OF EXAM: 05/09/2023 10:56 AM COMPARISON: NONE CLINICAL INDICATION: Male, 77 years old with history of swelling, elevated d-dimer; d-dimer SIDE PERFORMED: Bilateral TECHNIQUE: The lower extremity deep venous system is examined utilizing real time linear array sonog pat with graded compression, doppler sonography and color-flow sonography. VESSELS IMAGED: Common Femoral Vein Deep Femoral Vein Greater Saphenous Vein * Femoral Vein Popliteal Vein Small Saphenous Vein * Proximal Calf Veins (* superficial vessels) Right Leg: Negative for DVT Left Leg: Negative for DVT IMPRESSION: No evidence for DVT within the bilateral lower extremities imaged from the groin to the upper calves.
[2023-05-09] MEDS: ATORVASTATIN 20 MG TAB PO SCH (20:07)
[2023-05-09] MEDS: lisinopriL 20 MG TAB PO SCH ×2 (20:08→20:09)
[2023-05-10 06:24] LABS: INR 1.1 (<1.2); Partial Thromboplastin Time 50.9 sec (22.0-30.0); Prothrombin Time 11.6 sec (10.0-12.5)
[2023-05-10 06:27] LABS: Basophils % (A) 0 %; Eosinophils # (A) 0.2 k/uL (0-0.7); Eosinophils % (A) 2 %; HCT 37.5 % (39.0-53.0); HGB 12.5 gm/dL (13.0-17.5); Lymphocytes # (A) 1.6 k/uL (1.0-4.8); Lymphocytes % (A) 17 %; MCH 32.8 pg (25.0-35.0); MCHC 33.3 g/dL (31.0-37.0); MCV 98.5 fL (80.0-100.0); Mean Platelet Volume 8.3; Monocytes # (A) 0.6 k/uL (0-1.0); Monocytes % (A) 6 %; Neutrophils # (A) 6.9 k/uL (1.3-7.7); Neutrophils % (A) 74 %; Platelet Count 266 k/uL (150-450); RDW 12.2 % (11.5-15.5); WBC 9.4 k/uL (3.8-10.6)
[2023-05-10 07:37] LABS: ALT 35 U/L (4-49); AST 29 U/L (17-59); African American GFR (CKD) 72 (>60 ml/min/1.73 sqM); Albumin 2.7 g/dL (3.5-5.0); Alkaline Phosphatase 75 U/L (38-126); Anion Gap 7 mmol/L; Blood Urea Nitrogen 15 mg/dL (9-20); Calcium 7.9 mg/dL (8.4-10.2); Carbon Dioxide 20 mmol/L (22-30); Chloride 111 mmol/L (98-107); Glucose 88 mg/dL (74-99); Non-African American GFR(CKD) 62 (>60 ml/min/1.73 sqM); Sodium 138 mmol/L (137-145); Total Bilirubin 0.5 mg/dL (0.2-1.3); Total Protein 5.5 g/dL (6.3-8.2)
[2023-05-10] MEDS ORDERED: guaiFENesin 600 MG TABLET.ER PO PRN (07:58)
[2023-05-10] MEDS ORDERED: ALBUTEROL HFA INHALER INHALATION PRN (07:59)
--- NOTE | 2023-05-10 08:44 | P.PN ---
Subjective Progress Note Date: 05/10/23 patient is 77-year-old gentleman with past medical history significant for hypertension, hyperlipidemia who presented to the ER because of confusion. Patient has been dealing with cold like symptoms for the last 2 weeks. Patient requiring of nasal congestion. Denies any fever or chills. No complaint of shortness of breath. Denies any chest pain or palpitations. Denies any nausea, vomiting abdominal pain. Today patient son noticed that the patient was more confused. There was no complain of any weakness of any extremity. No complaints of slurred speech. Patient's son did not notice any facial droop. Because his acute confusion, patient brought to the ER Initial lab work done in the ER showed to be placed on Premarin, hemoglobin 13.4, platelet count 275 sodium 140, potassium 4.1, chloride 107, BUN 27, creatinine 1.32, glucose 100 troponin 0.035 UA done showed nitrite negative, leukocyte esterase negative, Urine drug screen positive for opioids and marijuana Influenza A not detected Influenza B not detected RSV not detected COVID-19 detected EKG done in the ER showed heart rate of 61 , no ST segment elevation or depression seen, no T-wave inversions seen. Chest x-ray done in the ER showed borderline heart size and suspected underlying COPD CT head done showed no acute intracranial process Patient admitted to internal medicine service 05/09. Patient seen and examined. Patient mental status improved. Answering questions appropriately, only gets confused about a year. Moving all extremities. Denies any chest pain at this time. Vital signs Stable 05/10. Patient seen and examined. Labs were done this morning showed WBC 9.4, hemoglobin 12.5. Sodium 1:30, potassium 4, BUN 15, creatinine 1.14. CTA chest done showed negative PE, did show generalized anasarca. Ultrasound of lower extremities negative for DVT REVIEW OF SYSTEMS: CONSTITUTIONAL: No fever, no malaise,. CARDIOVASCULAR: No chest pain, no palpitations, no syncope. PULMONARY: No shortness of breath, no cough, GASTROINTESTINAL: No diarrhea, no nausea, no vomiting, no abdominal pain. NEUROLOGICAL: No headaches, no weakness, PHYSICAL EXAMINATION: GENERAL: The patient is alert and oriented x3, not in any acute distress. Well developed, well nourished. HEENT: Pupils are round and equally reacting to light. EOMI. No scleral icterus. No conjunctival pallor. Normocephalic, atraumatic. No pharyngeal erythema. No thyromegaly. CARDIOVASCULAR: S1 and S2 present. No murmurs, rubs, or gallops. PULMONARY: Chest is clear to auscultation, no wheezing or crackles. ABDOMEN: Soft, nontender, nondistended, normoactive bowel sounds. No palpable organomegaly. MUSCULOSKELETAL: No joint swelling or deformity. EXTREMITIES: No cyanosis, clubbing, or pedal edema. NEUROLOGICAL: Gross neurological examination did not reveal any focal deficits. SKIN: No rashes. Assessment and plan Acute metabolic encephalopathy Left ICA stenosis COVID-19 infection Left pansinusitis Elevated troponin Hypertension Hyperlipidemia Monitor vital signs Monitor CBC Monitor CMP Continue telemetry monitoring Trend troponins Continue droplet plus isolation for COVID-19 infection Encourage use of I-S Aggressive bronchopulmonary hygiene Continue pharmacy dose heparin MRI brain ordered Continue Augmentin for pansinusitis Patient does not meet criteria for any COVID-19 related therapy at this time Neurology evaluated the patient, recommended vascular surgery evaluation for left ICA stenosis Cardiology following In regards to hypertension continue lisinopril Regards to hyperlipidemia continue Lipitor Labs and medication were reviewed.. Continue same treatment. Continue with symptomatic treatment. Resume home medication. Monitor labs and vitals. DVT a nd GI prophylaxis. Further recommendations as per clinical course of the patient Dictation was produced using [employer] dictation software. please excuse any grammatical, word or spelling errors. Objective - Vital Signs Vital signs: Vital Signs Temp 98.7 F 05/10/23 04:00 Pulse 54 L 05/10/23 04:00 Resp 20 05/10/23 04:00 BP 133/63 05/10/23 04:00 Pulse Ox 98 05/10/23 04:00 FiO2 Intake & Output 05/09/23 05/09/23 05/10/23 06:59 18:59 06:59 Intake Total 118 401.369 50.419 Balance 118 401.369 50.419 Intake: Intake, IV Titration 41.369 50.419 Amount Heparin Sod,Pork in 0.45% 41.369 50.419 NaCl 25,000 unit In 0.45 % NaCl 1 250ml.bag @ 12 UNITS/KG/HR 6.532 mls/hr IV .Q24H [facility] Rx#: [id number] Oral 118 360 Other: Voiding Method Toilet Toilet Toilet Urinal Urinal Urinal # Voids 1 1 2 # Bowel Movements 1 - Labs CBC & Chem 7: 05/10/23 05:31 05/10/23 05:31 Labs: Abnormal Lab Results - Last 24 Hours (Table) 05/09/23 05/09/23 05/09/23 Range/Units 07:03 07:03 09:54 RBC 3.95 L 3.61 L (4.30-5.90) m/uL Hgb 12.5 L (13.0-17.5) gm/dL Hct 35.8 L (39.0-53.0) % MCV 100.4 H (80.0-100.0) fL APTT (22.0-30.0) sec D-Dimer (<0.60) mg/L FEU Chloride 112 H (98-107) mmol/L Carbon Dioxide 20 L (22-30) mmol/L Calcium 7.9 L (8.4-10.2) mg/dL Total Protein 5.7 L (6.3-8.2) g/dL Albumin 3.0 L (3.5-5.0) g/dL 05/09/23 05/09/23 05/09/23 Range/Units 09:54 15:24 22:17 RBC (4.30-5.90) m/uL Hgb (13.0-17.5) gm/dL Hct (39.0-53.0) % MCV (80.0-100.0) fL APTT 41.2 H 38.6 H (22.0-30.0) sec D-Dimer 1.03 H (<0.60) mg/L FEU Chloride (98-107) mmol/L Carbon Dioxide (22-30) mmol/L Calcium (8.4-10.2) mg/dL Total Protein (6.3-8.2) g/dL Albumin (3.5-5.0) g/dL 05/10/23 05/10/23 Range/Units 05:31 05:31 RBC 3.80 L (4.30-5.90) m/uL Hgb 12.5 L (13.0-17.5) gm/dL Hct 37.5 L (39.0-53.0) % MCV (80.0-100.0) fL APTT 50.9 H (22.0-30.0) sec D-Dimer (<0.60) mg/L FEU Chloride (98-107) mmol/L Carbon Dioxide (22-30) mmol/L Calcium (8.4-10.2) mg/dL Total Protein (6.3-8.2) g/dL Albumin (3.5-5.0) g/dL
[2023-05-10] MEDS: NICOTINE 21MG/24HR PATCH TRANSDERM SCH (09:41)
[2023-05-10] MEDS: ASPIRIN 81 MG PO SCH (09:41)
[2023-05-10] MEDS: AMOXIC-POT CLAV 875-125MG 1 EACH TAB PO SCH ×2 (09:41→20:26)
--- NOTE | 2023-05-10 10:19 | P.GSCN ---
History of Present Illness Consult date: 05/10/23 Reason for Consult: Hemodynamically severe left ICA stenosis. History of present illness: Patient is a 77-year-old male who was admitted to the hospital with a complaint of confusion. The patient did receive a flu shot/vaccination and shortly thereafter noticed some confusion and lack of ability to fully concentrate. He presented the emergency room for further evaluation and patient was subsequently admitted. During his evaluation a carotid duplex was performed which demonstrated hematocrit severe left ICA stenosis. Upon direct questioning the patient denies any neurologic event that would be consistent with symptomatic carotid occlusive disease. He has approximately [id number] history of tobacco use and the patient continues to use tobacco. He denies any previous cerebrovascular accident. He does not claudicate although has had some percutaneous intervention in his lower extremities in the past. Past Medical History Past Medical History: Hyperlipidemia, Hypertension History of Any Multi-Drug Resistant Organisms: None Reported Additional Past Surgical History / Comment(s): Stents in legs Past Psychological History: No Psychological Hx Reported Smoking Status: Current every day smoker Past Alcohol Use History: Daily Past Drug Use History: None Reported Medications and Allergies Home Medications Medication Instructions Recorded Confirmed Type Simvastatin [Zocor] 40 mg PO HS 05/07/23 05/07/23 History ramipriL [Altace] 10 mg PO HS 05/07/23 05/07/23 History Allergies Allergy/AdvReac Type Severity Reaction Status Date / Time No Known Allergies Allergy Verified 05/07/23 21:07 Surgical - Exam Osteopathic Statement: *. No significant issues noted on an osteopathic structural exam other than those noted in the History and Physical/Consult. Vital Signs Temp Pulse Resp BP Pulse Ox 98.7 F 66 16 145/79 99 05/07/23 16:38 05/07/23 16:38 05/07/23 16:38 05/07/23 16:38 05/07/23 16:38 Head: Normocephalic and atraumatic. Neck: Supple, free of adenopathy and bruit. Abdomen: Soft and otherwise benign. Extremities: Radial and femoral pulses are intact bilaterally. There is no leg edema. Neurologic: Cranial nerves II through XII are grossly intact. Equal motor strength is noted in the upper lower extremities bilaterally. Results - Labs 05/10/23 05:31 05/10/23 05:31 Abnormal Lab Results - Last 24 Hours (Table) 05/09/23 05/09/23 05/09/23 Range/Units 07:03 09:54 09:54 RBC 3.61 L (4.30-5.90) m/uL Hgb 12.5 L (13.0-17.5) gm/dL Hct 35.8 L (39.0-53.0) % APTT (22.0-30.0) sec D-Dimer 1.03 H (<0.60) mg/L FEU Chloride 112 H (98-107) mmol/L Carbon Dioxide 20 L (22-30) mmol/L Calcium 7.9 L (8.4-10.2) mg/dL Total Protein 5.7 L (6.3-8.2) g/dL Albumin 3.0 L (3.5-5.0) g/dL 05/09/23 05/09/23 05/10/23 Range/Units 15:24 22:17 05:31 RBC 3.80 L (4.30-5.90) m/uL Hgb 12.5 L (13.0-17.5) gm/dL Hct 37.5 L (39.0-53.0) % APTT 41.2 H 38.6 H (22.0-30.0) sec D-Dimer (<0.60) mg/L FEU Chloride (98-107) mmol/L Carbon Dioxide (22-30) mmol/L Calcium (8.4-10.2) mg/dL Total Protein (6.3-8.2) g/dL Albumin (3.5-5.0) g/dL 05/10/23 05/10/23 Range/Units 05:31 05:31 RBC (4.30-5.90) m/uL Hgb (13.0-17.5) gm/dL Hct (39.0-53.0) % APTT 50.9 H (22.0-30.0) sec D-Dimer (<0.60) mg/L FEU Chloride 111 H (98-107) mmol/L Carbon Dioxide 20 L (22-30) mmol/L Calcium 7.9 L (8.4-10.2) mg/dL Total Protein 5.5 L (6.3-8.2) g/dL Albumin 2.7 L (3.5-5.0) g/dL Diabetes panel 05/09/23 05/10/23 Range/Units 07:03 05:31 Sodium 141 138 (137-145) mmol/L Potassium 4.4 4.0 (3.5-5.1) mmol/L Chloride 112 H 111 H (98-107) mmol/L Carbon Dioxide 20 L 20 L (22-30) mmol/L BUN 18 15 (9-20) mg/dL Creatinine 1.17 1.14 (0.66-1.25) mg/dL Glucose 77 88 (74-99) mg/dL Calcium 7.9 L 7.9 L (8.4-10.2) mg/dL AST 29 29 (17-59) U/L ALT 36 35 (4-49) U/L Alkaline Phosphatase 76 75 (38-126) U/L Total Protein 5.7 L 5.5 L (6.3-8.2) g/dL Albumin 3.0 L 2.7 L (3.5-5.0) g/dL Thyroid panel 05/09/23 Range/Units 07:03 TSH 2.180 (0.465-4.680) mIU/L Calcium panel 05/09/23 05/10/23 Range/Units 07:03 05:31 Calcium 7.9 L 7.9 L (8.4-10.2) mg/dL Albumin 3.0 L 2.7 L (3.5-5.0) g/dL Pituitary panel 05/09/23 05/10/23 Range/Units 07:03 05:31 Sodium 141 138 (137-145) mmol/L Potassium 4.4 4.0 (3.5-5.1) mmol/L Chloride 112 H 111 H (98-107) mmol/L Carbon Dioxide 20 L 20 L (22-30) mmol/L BUN 18 15 (9-20) mg/dL Creatinine 1.17 1.14 (0.66-1.25) mg/dL Glucose 77 88 (74-99) mg/dL Calcium 7.9 L 7.9 L (8.4-10.2) mg/dL TSH 2.180 (0.465-4.680) mIU/L Adrenal panel 05/09/23 05/10/23 Range/Units 07:03 05:31 Sodium 141 138 (137-145) mmol/L Potassium 4.4 4.0 (3.5-5.1) mmol/L Chloride 112 H 111 H (98-107) mmol/L Carbon Dioxide 20 L 20 L (22-30) mmol/L BUN 18 15 (9-20) mg/dL Creatinine 1.17 1.14 (0.66-1.25) mg/dL Glucose 77 88 (74-99) mg/dL Calcium 7.9 L 7.9 L (8.4-10.2) mg/dL Total Bilirubin 0.6 0.5 (0.2-1.3) mg/dL AST 29 29 (17-59) U/L ALT 36 35 (4-49) U/L Alkaline Phosphatase 76 75 (38-126) U/L Total Protein 5.7 L 5.5 L (6.3-8.2) g/dL Albumin 3.0 L 2.7 L (3.5-5.0) g/dL - Imaging Additional studies: Carotid duplex Assessment and Plan Assessment: 1: Hemodynamically severe left ICA stenosis. 2: Tobacco abuse history. 3: Possible cardiac disease. Plan: Patient will benefit from carotid intervention once cardiac issues addressed/clarified. Tobacco cessation. Aspirin We will follow.
[2023-05-10] MEDS: HEPARIN SOD,PORK IN 0.45% NACL 25,000 UNIT in 0.45% NACL 1 250ML.BAG IV SCH (11:59)
--- NOTE | 2023-05-10 12:43 | P.PN ---
Subjective Progress Note Date: 05/10/23 The patient is a 77-year-old male presented to the hospital with altered mental status and upper respiratory symptoms. He was found to be COVID-19 positive. Cardiology was consulted for mildly abnormal troponin levels. He was started on heparin drip. Patient was interviewed and he reports feeling better since his admission. He continues to have a cough but his breathing has improved. No dizziness or lightheadedness. No current chest discomfort. EXAM: Limited secondary to active COVID-19 infection TELEMETRY: Sinus rhythm with mild bradycardia overnight IMPRESSION: Acute COVID-19 infection Elevated troponin Shortness of breath Sinus bradycardia PLAN: Discontinue heparin drip tomorrow Continue supportive treatment for COVID-19 infection Continue telemetry to assess for arrhythmia and heart block Further recommendations to the clinical course I am dictating on behalf of Dr Leroy Caba's history/physical and assessment/plan. Objective - Vital Signs Vital signs: Vital Signs Temp 98.0 F 05/10/23 12:00 Pulse 49 L 05/10/23 12:00 Resp 14 05/10/23 12:00 BP 107/75 05/10/23 12:00 Pulse Ox 96 05/10/23 12:00 FiO2 Intake & Output 05/09/23 05/10/23 05/10/23 18:59 06:59 18:59 Intake Total 401.369 50.419 231.652 Balance 401.369 50.419 231.652 Intake: Intake, IV Titration 41.369 50.419 113.652 Amount Heparin Sod,Pork in 0.45% 41.369 50.419 113.652 NaCl 25,000 unit In 0.45 % NaCl 1 250ml.bag @ 12 UNITS/KG/HR 6.532 mls/hr IV .Q24H [facility] Rx#: [id number] Oral 360 118 Other: Voiding Method Toilet Toilet Toilet Urinal Urinal Urinal # Voids 1 2 1 # Bowel Movements 1 - Labs CBC & Chem 7: 05/10/23 05:31 05/10/23 05:31 Labs: Abnormal Lab Results - Last 24 Hours (Table) 05/09/23 05/09/23 05/10/23 Range/Units 15:24 22:17 05:31 RBC 3.80 L (4.30-5.90) m/uL Hgb 12.5 L (13.0-17.5) gm/dL Hct 37.5 L (39.0-53.0) % APTT 41.2 H 38.6 H (22.0-30.0) sec Chloride (98-107) mmol/L Carbon Dioxide (22-30) mmol/L Calcium (8.4-10.2) mg/dL Total Protein (6.3-8.2) g/dL Albumin (3.5-5.0) g/dL 05/10/23 05/10/23 Range/Units 05:31 05:31 RBC (4.30-5.90) m/uL Hgb (13.0-17.5) gm/dL Hct (39.0-53.0) % APTT 50.9 H (22.0-30.0) sec Chloride 111 H (98-107) mmol/L Carbon Dioxide 20 L (22-30) mmol/L Calcium 7.9 L (8.4-10.2) mg/dL Total Protein 5.5 L (6.3-8.2) g/dL Albumin 2.7 L (3.5-5.0) g/dL
--- NOTE | 2023-05-10 16:40 | P.PN ---
Subjective Progress Note Date: 05/10/23 Patient was seen for a follow-up. Patient is laying comfortably in bed. Offers no complaints. He feels much better. Yesterday I had spoken to patient's on the phone. She mentioned that patient and she herself, both suffered from a flu about 2-1/2 weeks ago. She further mentioned that since , 05/06/2023, he has been acting strange, "out of it", "not all together there". He could not put words together properly. This is the reason that she brought him to the hospital. Patient's reports that he does take aspirin 81 mg daily, although it is not listed in his home medication list. She mentions that patient has smoked 1 pack per day for 50 years, cutback to smoking half pack per day in the last 4-5 months. He does drink 2 beer per day, not a heavy drinker. He smokes marijuana once in a while. Denies any hypertension or diabetes. Objective - Vital Signs Vital signs: Vital Signs Temp 98.0 F 05/10/23 12:00 Pulse 49 L 05/10/23 12:00 Resp 14 05/10/23 12:00 BP 107/75 05/10/23 12:00 Pulse Ox 96 05/10/23 12:00 FiO2 Intake & Output 05/09/23 05/10/23 05/10/23 18:59 06:59 18:59 Intake Total 401.369 50.419 231.652 Balance 401.369 50.419 231.652 Intake: Intake, IV Titration 41.369 50.419 113.652 Amount Heparin Sod,Pork in 0.45% 41.369 50.419 113.652 NaCl 25,000 unit In 0.45 % NaCl 1 250ml.bag @ 12 UNITS/KG/HR 6.532 mls/hr IV .Q24H [facility] Rx#: [id number] Oral 360 118 Other: Voiding Method Toilet Toilet Toilet Urinal Urinal Urinal # Voids 1 2 1 # Bowel Movements 1 - Exam Patient is alert and awake in no distress. Examination deferred. Face is symmetric. - Labs CBC & Chem 7: 05/10/23 05:31 05/10/23 05:31 Labs: Abnormal Lab Results - Last 24 Hours (Table) 05/09/23 05/09/23 05/10/23 Range/Units 15:24 22:17 05:31 RBC 3.80 L (4.30-5.90) m/uL Hgb 12.5 L (13.0-17.5) gm/dL Hct 37.5 L (39.0-53.0) % APTT 41.2 H 38.6 H (22.0-30.0) sec Chloride (98-107) mmol/L Carbon Dioxide (22-30) mmol/L Calcium (8.4-10.2) mg/dL Total Protein (6.3-8.2) g/dL Albumin (3.5-5.0) g/dL 05/10/23 05/10/23 Range/Units 05:31 05:31 RBC (4.30-5.90) m/uL Hgb (13.0-17.5) gm/dL Hct (39.0-53.0) % APTT 50.9 H (22.0-30.0) sec Chloride 111 H (98-107) mmol/L Carbon Dioxide 20 L (22-30) mmol/L Calcium 7.9 L (8.4-10.2) mg/dL Total Protein 5.5 L (6.3-8.2) g/dL Albumin 2.7 L (3.5-5.0) g/dL Assessment and Plan Assessment: * Altered mental status, likely due to acute metabolic encephalopathy. Reasons multifactorial as mentioned below. * Speech difficulty, rule out stroke/TIA * Left ICA stenosis, severe, > 70% proximal left ICA, probably symptomatic. * Acute Covid-19 infection * Acute, severe pansinusitis, with complete opacification of the left maxillary, left frontal sinuses, with significant involvement of bilateral ethmoid air cells and air fluid level in the sphenoid sinuses. * Impacted cerumen right external auditory canal * Elevated troponin, cardiology on board * Tobacco use * Marijuana use Plan: * Carotid Doppler revealed severe, greater than 70% proximal left ICA stenosis. Antegrade flow in both vertebral arteries. * Vascular surgery input appreciated. Patient will benefit from carotid intervention, once cardiac issues has been addressed/clarified. * Patient to receive aspirin 324 mg 1 dose, and then 81 mg daily. Patient was on aspirin 81 mg daily at home. * Cardiology has seen the patient, also started on IV heparin for elevated cardiac enzymes. Most recent PTT 50.9. * Check MRI of the brain, evaluate for acute stroke. * B12 571, folate 10.8, TSH 2.18. All normal * Patient currently not on any antibiotics. Recommend starting Augmentin for severe pansinusitis. * Other medical management as per IM/cardiology. * Recommend complete tobacco cessation. * DVT prophylaxis: Patient on IV heparin.
[2023-05-10] MEDS: lisinopriL 20 MG TAB PO SCH (20:26)
[2023-05-10] MEDS: ATORVASTATIN 20 MG TAB PO SCH (20:26)
[2023-05-10] MEDS: METOPROLOL TARTRATE 25 MG TAB PO SCH (21:58)
[2023-05-11 04:47] VITALS: RESP 16
[2023-05-11] MEDS: NICOTINE 21MG/24HR PATCH TRANSDERM SCH (09:08)
[2023-05-11] MEDS: AMOXIC-POT CLAV 875-125MG 1 EACH TAB PO SCH ×2 (09:09→21:08)
[2023-05-11] MEDS: ASPIRIN 81 MG PO SCH (09:10)
[2023-05-11] MEDS: METOPROLOL TARTRATE 25 MG TAB PO SCH ×2 (09:10→21:06)
[2023-05-11 09:11] LABS: Basophils % (A) 0 %; Eosinophils # (A) 0.3 k/uL (0-0.7); Eosinophils % (A) 3 %; HCT 39.1 % (39.0-53.0); HGB 12.6 gm/dL (13.0-17.5); Lymphocytes # (A) 1.6 k/uL (1.0-4.8); Lymphocytes % (A) 18 %; MCH 32.5 pg (25.0-35.0); MCHC 32.3 g/dL (31.0-37.0); MCV 100.8 fL (80.0-100.0); Mean Platelet Volume 8.2; Monocytes # (A) 0.5 k/uL (0-1.0); Monocytes % (A) 6 %; Neutrophils % (A) 70 %; Platelet Count 261 k/uL (150-450); RBC 3.88 m/uL (4.30-5.90); RDW 12.2 % (11.5-15.5); WBC 8.5 k/uL (3.8-10.6)
[2023-05-11 10:52] LABS: ALT 32 U/L (4-49); AST 28 U/L (17-59); African American GFR (CKD) 75 (>60 ml/min/1.73 sqM); Albumin 2.8 g/dL (3.5-5.0); Alkaline Phosphatase 81 U/L (38-126); Anion Gap 8 mmol/L; Blood Urea Nitrogen 14 mg/dL (9-20); Calcium 8.1 mg/dL (8.4-10.2); Carbon Dioxide 22 mmol/L (22-30); Chloride 107 mmol/L (98-107); Glucose 108 mg/dL (74-99); Non-African American GFR(CKD) 65 (>60 ml/min/1.73 sqM); Potassium 4.3 mmol/L (3.5-5.1); Sodium 137 mmol/L (137-145); Total Bilirubin 0.7 mg/dL (0.2-1.3); Total Protein 5.6 g/dL (6.3-8.2)
--- NOTE | 2023-05-11 11:22 | P.PN ---
Subjective Progress Note Date: 05/11/23 Principal diagnosis: Patient followed up for consult for left ICA stenosis. Patient tested positive for COVID-19 infection. No acute changes through the night. Patient is being followed by cardiology and was started on a heparin drip for elevated troponins, which is discontinued this morning. Objective - Vital Signs Vital signs: Vital Signs Temp 98.2 F 05/10/23 16:27 Pulse 45 L 05/11/23 08:00 Resp 16 05/11/23 08:00 BP 100/57 05/11/23 08:00 Pulse Ox 100 05/11/23 08:00 FiO2 Intake & Output 05/10/23 05/11/23 05/11/23 18:59 06:59 18:59 Intake Total 467.652 Balance 467.652 Intake: Intake, IV Titration 113.652 Amount Heparin Sod,Pork in 0.45% 113.652 NaCl 25,000 unit In 0.45 % NaCl 1 250ml.bag @ 12 UNITS/KG/HR 6.532 mls/hr IV .Q24H [facility] Rx#: [id number] Oral 354 Other: Voiding Method Toilet Toilet Toilet Urinal Urinal Urinal # Voids 2 1 - Exam Head: Normocephalic and atraumatic. Neck: Supple, free of adenopathy and bruit. Extremities: Radial and femoral pulses are intact bilaterally. There is no leg edema. Neurologic: Cranial nerves II through XII are grossly intact. Equal motor strength is noted in the upper lower extremities bilaterally. - Labs CBC & Chem 7: 05/11/23 08:36 05/11/23 08:36 Labs: Abnormal Lab Results - Last 24 Hours (Table) 05/11/23 05/11/23 05/11/23 Range/Units 08:36 08:36 08:36 RBC 3.88 L (4.30-5.90) m/uL Hgb 12.6 L (13.0-17.5) gm/dL MCV 100.8 H (80.0-100.0) fL APTT 53.2 H (22.0-30.0) sec Glucose 108 H (74-99) mg/dL Calcium 8.1 L (8.4-10.2) mg/dL Total Protein 5.6 L (6.3-8.2) g/dL Albumin 2.8 L (3.5-5.0) g/dL Assessment and Plan Assessment: 1. Hemodynamically severe Left ICA stenosis 2. Altered mental status changes 3. Tobacco abuse 4. Acute Covid 19 infection 5. Elevated troponins Plan: Patient will benefit from carotid intervention once medically and cardiac cleared. This certainly can be done as an outpatient. Recommend CT angiogram head and neck for further evaluation of carotid stenosis and as part of workup for possible T car versus carotid endarterectomy. Continue ASA and statin, consider plavix once cleared by neurology, Recommend tobacco cessation and continue with medical management. The impression and plan of care has been dictated as directed. I performed a history and examination of this patient, discussed the same with the dictator. I agree with the dictator's note ,documented as a scribe. Any additional findings or plans will be noted.
--- NOTE | 2023-05-11 11:31 | P.PN ---
Subjective Progress Note Date: 05/11/23 This is a pleasant 77-year-old gentleman with a history of hypertension and hyperlipidemia. Previously followed with Dr. Briones for cardiology last seen him in 2016 but does have an upcoming appointment on May 19. He presented with altered mental status and upper respiratory symptoms and was found to be positive for COVID-19. We were consulted for mildly elevated troponins. Patient did have an echocardiogram done as an outpatient last month which showed an ejection fraction of 35-40% with moderate pulmonary hypertension, mild MR and moderate AI. Of note he had an echocardiogram done in 2019 that showed a normal LV systolic function. He denies any complaints of chest discomfort. He's been coughing and does have some mild shortness of breath. He is overall beginning to feel a bit better. Objective - Vital Signs Vital signs: Vital Signs Temp 98.2 F 05/10/23 16:27 Pulse 45 L 05/11/23 08:00 Resp 16 05/11/23 08:00 BP 100/57 05/11/23 08:00 Pulse Ox 100 05/11/23 08:00 FiO2 Intake & Output 05/10/23 05/11/23 05/11/23 18:59 06:59 18:59 Intake Total 467.652 118 Balance 467.652 118 Intake: Intake, IV Titration 113.652 Amount Heparin Sod,Pork in 0.45% 113.652 NaCl 25,000 unit In 0.45 % NaCl 1 250ml.bag @ 12 UNITS/KG/HR 6.532 mls/hr IV .Q24H [facility] Rx#: [id number] Oral 354 118 Other: Voiding Method Toilet Toilet Toilet Urinal Urinal Urinal # Voids 2 1 3 - Exam PHYSICAL EXAMINATION: HEENT: Head is atraumatic, normocephalic. Pupils equal, round. Neck is supple. There is no elevated jugular venous pressure. HEART EXAMINATION: Heart sounds regular, S1 and S2 normal. Soft systolic murmur. CHEST EXAMINATION: Lungs are clear to auscultation and precussion. No chest wall tenderness is noted on palpation or with deep breathing. ABDOMEN: Soft, nontender. Bowel sounds are heard. No organomegaly noted. EXTREMITIES: 2+ peripheral pulses with no evidence of peripheral edema and no calf tenderness noted. NEUROLOGIC patient is awake, alert and oriented x3. . - Labs CBC & Chem 7: 05/11/23 08:36 05/11/23 08:36 Labs: Abnormal Lab Results - Last 24 Hours (Table) 05/11/23 05/11/23 05/11/23 Range/Units 08:36 08:36 08:36 RBC 3.88 L (4.30-5.90) m/uL Hgb 12.6 L (13.0-17.5) gm/dL MCV 100.8 H (80.0-100.0) fL APTT 53.2 H (22.0-30.0) sec Glucose 108 H (74-99) mg/dL Calcium 8.1 L (8.4-10.2) mg/dL Total Protein 5.6 L (6.3-8.2) g/dL Albumin 2.8 L (3.5-5.0) g/dL Assessment and Plan Assessment: #1 acute COVID-19 infection #2 elevated troponin, likely secondary to above, not consistent with acute coronary event #3 cardiomyopathy, unspecified amount mucinous 2019 #4 hypertension 5 hyperlipidemia Plan: From cardiology's perspective we will discontinue IV heparin. We will obtain and limited 2-D echo to reassess LV systolic function. We will continue to follow the patient and provide further recommendations accordingly. SIGNALS COLLECTION TECHNICIAN note has been reviewed, I agree with a documented findings and plan of care. Patient was seen and examined.
--- NOTE | 2023-05-11 13:29 | P.PN ---
Subjective Progress Note Date: 05/11/23 patient is 77-year-old gentleman with past medical history significant for hypertension, hyperlipidemia who presented to the ER because of confusion. Patient has been dealing with cold like symptoms for the last 2 weeks. Patient requiring of nasal congestion. Denies any fever or chills. No complaint of shortness of breath. Denies any chest pain or palpitations. Denies any nausea, vomiting abdominal pain. Today patient son noticed that the patient was more confused. There was no complain of any weakness of any extremity. No complaints of slurred speech. Patient's son did not notice any facial droop. Because his acute confusion, patient brought to the ER Initial lab work done in the ER showed to be placed on Premarin, hemoglobin 13.4, platelet count 275 sodium 140, potassium 4.1, chloride 107, BUN 27, creatinine 1.32, glucose 100 troponin 0.035 UA done showed nitrite negative, leukocyte esterase negative, Urine drug screen positive for opioids and marijuana Influenza A not detected Influenza B not detected RSV not detected COVID-19 detected EKG done in the ER showed heart rate of 61 , no ST segment elevation or depression seen, no T-wave inversions seen. Chest x-ray done in the ER showed borderline heart size and suspected underlying COPD CT head done showed no acute intracranial process Patient admitted to internal medicine service 05/09. Patient seen and examined. Patient mental status improved. Answering questions appropriately, only gets confused about a year. Moving all extremities. Denies any chest pain at this time. Vital signs Stable 05/10. Patient seen and examined. Labs were done this morning showed WBC 9.4, hemoglobin 12.5. Sodium 1:30, potassium 4, BUN 15, creatinine 1.14. CTA chest done showed negative PE, did show generalized anasarca. Ultrasound of lower extremities negative for DVT 05/11. Patient seen and examined. No acute issues overnight. Denies any lightheadedness or dizziness. Denies any weakness of any extremity. Scheduled for MRI brain today Vital signs stable REVIEW OF SYSTEMS: CONSTITUTIONAL: No fever, no malaise,. CARDIOVASCULAR: No chest pain, no palpitations, no syncope. PULMONARY: No shortness of breath, no cough, GASTROINTESTINAL: No diarrhea, no nausea, no vomiting, no abdominal pain. NEUROLOGICAL: No headaches, no weakness, PHYSICAL EXAMINATION: GENERAL: The patient is alert and oriented x3, not in any acute distress. Well developed, well nourished. HEENT: Pupils are round and equally reacting to light. EOMI. No scleral icterus. No conjunctival pallor. Normocephalic, atraumatic. No pharyngeal erythema. No thyromegaly. CARDIOVASCULAR: S1 and S2 present. No murmurs, rubs, or gallops. PULMONARY: Chest is clear to auscultation, no wheezing or crackles. ABDOMEN: Soft, nontender, nondistended, normoactive bowel sounds. No palpable organomegaly. MUSCULOSKELETAL: No joint swelling or deformity. EXTREMITIES: No cyanosis, clubbing, or pedal edema. NEUROLOGICAL: Gross neurological examination did not reveal any focal deficits. SKIN: No rashes. Assessment and plan Acute metabolic encephalopathy Left ICA stenosis COVID-19 infection Left pansinusitis Elevated troponin Hypertension Hyperlipidemia Monitor vital signs Monitor CBC Monitor CMP Continue telemetry monitoring Trend troponins Continue droplet plus isolation for COVID-19 infection Encourage use of I-S Aggressive bronchopulmonary hygiene Continue pharmacy dose heparin MRI brain ordered Continue Augmentin for pansinusitis Patient does not meet criteria for any COVID-19 related therapy at this time Neurology evaluated the patient, recommended vascular surgery evaluation for left ICA stenosis Vascular surgery following Cardiology following In regards to hypertension continue lisinopril Regards to hyperlipidemia continue Lipitor Labs and medication were reviewed.. Continue same treatment. Continue with symptomatic treatment. Resume home medication. Monitor labs and vitals. DVT and GI prophylaxis. Further recommendations as per clinical course of the pat ient Dictation was produced using [employer] dictation software. please excuse any grammatical, word or spelling errors. Objective - Vital Signs Vital signs: Vital Signs Temp 98.2 F 05/10/23 16:27 Pulse 45 L 05/11/23 08:00 Resp 16 05/11/23 08:00 BP 100/57 05/11/23 08:00 Pulse Ox 100 05/11/23 08:00 FiO2 Intake & Output 05/10/23 05/11/23 05/11/23 18:59 06:59 18:59 Intake Total 467.652 Balance 467.652 Intake: Intake, IV Titration 113.652 Amount Heparin Sod,Pork in 0.45% 113.652 NaCl 25,000 unit In 0.45 % NaCl 1 250ml.bag @ 12 UNITS/KG/HR 6.532 mls/hr IV .Q24H [facility] Rx#: [id number] Oral 354 Other: Voiding Method Toilet Toilet Toilet Urinal Urinal Urinal # Voids 2 1 - Labs CBC & Chem 7: 05/11/23 08:36 05/11/23 08:36 Labs: Abnormal Lab Results - Last 24 Hours (Table) 05/11/23 05/11/23 Range/Units 08:36 08:36 RBC 3.88 L (4.30-5.90) m/uL Hgb 12.6 L (13.0-17.5) gm/dL MCV 100.8 H (80.0-100.0) fL APTT 53.2 H (22.0-30.0) sec
--- NOTE | 2023-05-11 14:37 | P.PN ---
Subjective Progress Note Date: 05/11/23 Patient was seen for a follow-up. Patient is laying comfortably in bed. Offers no complaints. He feels much better. Patient feels back to baseline. Speech is back to normal. Yesterday I had spoken to patient's on the phone. She mentioned that patient and she herself, both suffered from a flu about 2-1/2 weeks ago. She further mentioned that since , 05/06/2023, he has been acting strange, "out of it", "not all together there". He could not put words together properly. This is the reason that she brought him to the hospital. Patient's reports that he does take aspirin 81 mg daily, although it is not listed in his home medication list. She mentions that patient has smoked 1 pack per day for 50 years, cutback to smoking half pack per day in the last 4-5 months. He does drink 2 beer per day, not a heavy drinker. He smokes marijuana once in a while. Denies any hypert ension or diabetes. Objective - Vital Signs Vital signs: Vital Signs Temp 98.2 F 05/10/23 16:27 Pulse 46 L 05/11/23 11:43 Resp 16 05/11/23 11:43 BP 102/51 05/11/23 11:43 Pulse Ox 98 05/11/23 11:43 FiO2 Intake & Output 05/10/23 05/11/23 05/11/23 18:59 06:59 18:59 Intake Total 467.652 118 Balance 467.652 118 Intake: Intake, IV Titration 113.652 Amount Heparin Sod,Pork in 0.45% 113.652 NaCl 25,000 unit In 0.45 % NaCl 1 250ml.bag @ 12 UNITS/KG/HR 6.532 mls/hr IV .Q24H [facility] Rx#: [id number] Oral 354 118 Other: Voiding Method Toilet Toilet Toilet Urinal Urinal Urinal # Voids 2 1 3 - Exam Patient is alert and awake in no distress. Speech and language pulses are normal. Patient can name and repeat very well. - Labs CBC & Chem 7: 05/11/23 08:36 05/11/23 08:36 Labs: Abnormal Lab Results - Last 24 Hours (Table) 05/11/23 05/11/23 05/11/23 Range/Units 08:36 08:36 08:36 RBC 3.88 L (4.30-5.90) m/uL Hgb 12.6 L (13.0-17.5) gm/dL MCV 100.8 H (80.0-100.0) fL APTT 53.2 H (22.0-30.0) sec Glucose 108 H (74-99) mg/dL Calcium 8.1 L (8.4-10.2) mg/dL Total Protein 5.6 L (6.3-8.2) g/dL Albumin 2.8 L (3.5-5.0) g/dL Assessment and Plan Assessment: * Altered mental status, likely due to acute metabolic encephalopathy. Reasons multifactorial as mentioned below. * Speech difficulty, rule out stroke/TIA * Left ICA stenosis, severe, > 70% proximal left ICA, probably symptomatic. * Acute Covid-19 infection * Acute, severe pansinusitis, with complete opacification of the left maxillary, left frontal sinuses, with significant involvement of bilateral ethmoid air cells and air fluid level in the sphenoid sinuses. * Impacted cerumen right external auditory canal * Elevated troponin, cardiology on board * Tobacco use * Marijuana use Plan: * Carotid Doppler revealed severe, greater than 70% proximal left ICA stenosis. Antegrade flow in both vertebral arteries. * Vascular surgery input appreciated. CTA ordered by vascular surgery. * Patient to receive aspirin 324 mg 1 dose, and then 81 mg daily. Patient was on aspirin 81 mg daily at home. * Cardiology has seen the patient, also started on IV heparin for elevated cardiac enzymes. Most recent PTT 50.9. * Await MRI of the brain, evaluate for acute stroke. * B12 571, folate 10.8, TSH 2.18. All normal * Patient currently not on any antibiotics. Recommend starting Augmentin for severe pansinusitis. * Other medical management as per IM/cardiology. * Recommend complete tobacco cessation. * DVT prophylaxis: Lovenox 40 mg subcu daily. * Dr. Steve Zamudio to resume neurology service in the morning.
--- NOTE | 2023-05-11 16:11 | MR ---
MRI brain without contrast HISTORY: CVA. COMPARISON: None TECHNIQUE: Multiecho multiplanar images the brain were obtained without contrast. On the T1-weighted sagittal images midline structures including the craniovertebral junction relation ships appear normal. The ventricles, basal cisterns and sulci over the convexities within normal limits and there is no ma ss effect or shift of midline structures. The diffusion-weighted images, there is diffusion restriction in the left opercular cortex consistent with an acute ischemic event. Grossly the posterior fossa is normal. The intraorbital contents appear normal and symmetric. There are marked inflammatory changes in the left maxillary sinus, sphenoid sinuses and sphenoid sinu ses. IMPRESSION: 1. 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 2. Marked inflammatory changes in the left maxillary sinus, ethmoid sinuses and sphenoid sinuses.
[2023-05-11] MEDS: ENOXAPARIN 40 MG/0.4 ML SYRINGE SQ SCH (17:12)
--- NOTE | 2023-05-11 17:43 | CT ---
EXAMINATION TYPE: CT angio head neck CT DLP: 308.6 mGycm, Automated exposure control for dose reduction was used. DATE OF EXAM: 05/11/2023 5:10 PM COMPARISON: CT 05/07/2023 and 05/09/2023.. CLINICAL INDICATION:Male, 77 years old with history of AMS, evaluate left carotid stenosis; PHH, AMS, evaluate left carotid stenosis. TECHNIQUE: Axially acquired helical CT angiogram of the head and neck was obtained with contrast. Axi al images are supplemented with 3D reconstructions and MIP images which were post-processed at an in dependent workstation. NASCET criteria used. Contrast used:65 ml mL of Isovue 370 with IV Contrast, Oral contrast used: None. FINDINGS: CTA HEAD: No evidence of acute intracranial hemorrhage, mass effect, or midline shift. The ventricles, sulci, a nd cisterns are unremarkable. Moderate paranasal sinus disease with opacification of the left ethmoid air cells, left maxillary sinus and sphenoid sinuses. The visualized portions of the internal carotid arteries, middle cerebral arteries, anterior cerebral arteries, and posterior cerebral arteries are patent. Atherosclerosis of the carotid siphons without significant stenosis. The basilar and vertebral arteries are patent. CTA NECK: Right Carotid System: The common carotid and external carotid arteries are patent. There is less than 50 % stenosis at the carotid bifurcation secondary to calcified/noncalcified plaque. There is tortuosity to the internal c arotid artery. The rest of the internal carotid artery is patent. Left Carotid System: The common carotid and external carotid arteries are patent. There is less than 50-70 % stenosis at t he carotid bifurcation secondary to calcified/noncalcified plaque. The rest of the internal carotid a rtery is patent. There is tortuosity to the internal carotid artery Vertebral arteries are patent without evidence hemodynamically significant stenosis. There is a three-vessel aortic arch. The origins of the great vessels are patent. No evidence of hemo dynamically significant stenosis. Upper thorax: Moderate centrilobular emphysema changes in lung apices. IMPRESSION: 1. Atherosclerotic plaque at the carotid bifurcations with at least 50% stenosis on the right and 50 -70% stenosis on the left. 2. No evidence of intracranial high-grade stenosis or intracranial aneurysm.
[2023-05-11] MEDS: ATORVASTATIN 20 MG TAB PO SCH (21:09)
[2023-05-11 22:29] VITALS: TEMP 98.3
[2023-05-11] MEDS: lisinopriL 20 MG TAB PO SCH (23:43)
--- NOTE | 2023-05-12 08:10 | CA ---
Transthoracic Echo Report Name: Maximino Briones Age: 77 Gender: M : 1945 Exam Date: 05/11/2023 13:21 Exam Location: [facility] Ht (in): 64 Wt (lb): 120 Ordering Physician: Gela Myers MD ([id number]) Attending/Referring Phys: Auto Wheel Alignment Specialist Bola Adame Procedure CPT: Indications: EF Cardiac Hx: Technical Quality: Good Contrast 1: Total Dose (mL): Contrast 2: Total Dose (mL): MEASUREMENTS (Male / Female) Normal Values 2D ECHO LV Diastolic Volume MOD BP 66.5 cm??? 67 - 155 / 56 - 104 cm??? LV Systolic Volume MOD BP 35.4 cm??? 22 - 58 / 19 - 49 cm??? LV Ejection Fraction MOD BP 46.8 % >= 55 % LV Cardiac Index MOD BP 992.6 cm???/min???m??? LV Diastolic Volume MOD 4C 66.6 cm??? LV Systolic Volume MOD 4C 37.0 cm??? LV Ejection Fraction MOD 4C 44.4 % LV Cardiac Index MOD 4C 944.7 cm???/min???m??? LV Diastolic Length 4C 6.2 cm LV Systolic Length 4C 5.4 cm LV Diastolic Volume MOD 2C 63.7 cm??? LV Systolic Volume MOD 2C 33.2 cm??? LV Ejection Fraction MOD 2C 47.8 % LV Cardiac Index MOD 2C 972.2 cm???/min???m??? LV Diastolic Length 2C 5.9 cm LV Systolic Length 2C 5.3 cm FINDINGS Left Ventricle Normal LV size and wall thickness. Left ventricular ejection fraction is estimated at 40 %. Global hypokenesis. Right Ventricle Normal right ventricular size. Right Atrium Moderate right atrial dilatation. Left Atrium Moderate left atrial dilatation. Mitral Valve Aortic Valve Tricuspid Valve Pulmonic Valve Pericardium Aorta CONCLUSIONS Left ventricular ejection fraction 40% Global hypokinesis Moderately dilated left and right atrium Previewed by: Dr. Kavon Orozco DO (Electronically Signed) Final Date: 12 May 2023 08:09
[2023-05-12] MEDS: NICOTINE 21MG/24HR PATCH TRANSDERM SCH (08:51)
[2023-05-12] MEDS: ASPIRIN 81 MG PO SCH (08:51)
[2023-05-12] MEDS: AMOXIC-POT CLAV 875-125MG 1 EACH TAB PO SCH (08:51)
[2023-05-12] MEDS: ENOXAPARIN 40 MG/0.4 ML SYRINGE SQ SCH (08:51)
[2023-05-12] MEDS: METOPROLOL TARTRATE 25 MG TAB PO SCH (08:52)
--- NOTE | 2023-05-12 08:58 | P.DS ---
Providers Date of admission: 05/09/23 12:52 Attending physician: Ren Avelar Consults: 05/07/23 20:27 Consult Physician Routine Consulting Provider: Steve Zamudio Consult Reason/Comments: AMS Do you want consulting provider notified?: Yes 05/08/23 09:35 Consult Physician Routine Consulting Provider: Aubrey Connell Consult Reason/Comments: Elevated troponin, bradycardia Do you want consulting provider notified?: Yes 05/09/23 10:02 Consult Physician Routine Consulting Provider: Blair Workman Consult Reason/Comments: Left ICA stenosis, severe, pt with speech difficulty Do you want consulting provider notified?: Yes Primary care physician: Ren Avelar Hospital Course: This discharge summary a 77-year-old male admitted for altered mental status found to have CVA. Troponin was elevated and echo cardiac was done. The patient has significant critical stenosis of the left internal carotid with elevated troponin. Consultants were seen he wishes to have vascular work done at another institution which is down previous work for him. We will discharge him home on beta caden with anticoagulant aspirin. We'll defer Plavix or other anticoagulant with neurology. We will DC when stable from consultants perspective with home health. Patient Condition at Discharge: Stable Plan - Discharge Summary Discharge Rx Participant: Yes New Discharge Prescriptions: New Nicotine 21Mg/24Hr Patch [Habitrol] 1 patch TRANSDERM DAILY #30 patch Metoprolol Tartrate [Lopressor] 25 mg PO BID #60 tab guaiFENesin [Mucinex] 600 mg PO Q12HR PRN tab PRN Reason: Cough Acetaminophen Tab [Tylenol] 650 mg PO Q6HR PRN tab PRN Reason: Mild Pain Or Fever > 100.5 Albuterol Inhaler [Ventolin Hfa Inhaler] 2 puff INHALATION RT-TID PRN #1 each PRN Reason: Shortness Of Breath Or Wheezing Aspirin 81 mg PO DAILY #30 tab Amoxic-Pot Clav 875-125Mg [Augmentin 875-125] 1 each PO Q12HR #10 tab Melatonin 3 mg PO HS PRN 30 Days #30 tab PRN Reason: Insomnia Continue Simvastatin [Zocor] 40 mg PO HS ramipriL [Altace] 10 mg PO HS Discharge Medication List Simvastatin [Zocor] 40 mg PO HS 05/07/23 [History] ramipriL [Altace] 10 mg PO HS 05/07/23 [History] Acetaminophen Tab [Tylenol] 650 mg PO Q6HR PRN tab 05/12/23 [Rx] Albuterol Inhaler [Ventolin Hfa Inhaler] 2 puff INHALATION RT-TID PRN #1 each 05/12/23 [Rx] Amoxic-Pot Clav 875-125Mg [Augmentin 875-125] 1 each PO Q12HR #10 tab 05/12/23 [Rx] Aspirin 81 mg PO DAILY #30 tab 05/12/23 [Rx] Melatonin 3 mg PO HS PRN 30 Days #30 tab 05/12/23 [Rx] Metoprolol Tartrate [Lopressor] 25 mg PO BID #60 tab 05/12/23 [Rx] Nicotine 21Mg/24Hr Patch [Habitrol] 1 patch TRANSDERM DAILY #30 patch 05/12/23 [Rx] guaiFENesin [Mucinex] 600 mg PO Q12HR PRN tab 05/12/23 [Rx] Follow up Appointment(s)/Referral(s): Ren Avelar MD [Primary Care Provider] - 3 Days Discharge Disposition: HOME WITH HOME HEALTH SERVICES
--- NOTE | 2023-05-12 11:08 | P.PN ---
Subjective Progress Note Date: 05/12/23 Principal diagnosis: Carotid stenosis Patient followed up for consult for left ICA stenosis. Patient tested positive for COVID-19 infection. No acute changes through the night. Currently denies any chest pain, shortness of breath, dizziness, or new focal deficits. Yesterday he underwent MRI of the brain that reported acute ischemic infarct involving the left upper opercular cortex. Marked inflammatory changes in the left maxillary sinus, ethmoid sinuses and sphenoid sinuses. He also Underwent CT angiogram of head and neck that reported arthrosclerotic plaque at the c arotid bifurcations at least 50% stenosis on the right and 50-70% stenosis on the left. No evidence of intracranial high-grade stenosis or intracranial aneurysm. Patient states he follows with Dr. Davin Briones out of [facility] for His Vascular Needs, and has done a previous lower extremity revascularization with him. Objective - Vital Signs Vital signs: Vital Signs Temp 98.3 F 05/11/23 23:42 Pulse 46 L 05/12/23 03:22 Resp 16 05/12/23 03:22 BP 113/56 05/12/23 03:22 Pulse Ox 96 05/12/23 03:22 FiO2 Intake & Output 05/11/23 05/12/23 05/12/23 18:59 06:59 18:59 Intake Total 118 10 Balance 118 10 Intake: IV 10 Invasive Line 1 10 Oral 118 Other: Voiding Method Toilet Toilet Urinal # Voids 3 1 - Exam Head: Normocephalic and atraumatic. Neck: Supple, carotid bruitbruit. Extremities: Radial and femoral pulses are intact bilaterally. There is no leg edema. Neurologic: Cranial nerves II through XII are grossly intact. Equal motor strength is noted in the upper lower extremities bilaterally. - Labs CBC & Chem 7: 05/11/23 08:36 05/11/23 08:36 Labs: Abnormal Lab Results - Last 24 Hours (Table) 05/11/23 05/11/23 05/11/23 Range/Units 08:36 08:36 08:36 RBC 3.88 L (4.30-5.90) m/uL Hgb 12.6 L (13.0-17.5) gm/dL MCV 100.8 H (80.0-100.0) fL APTT 53.2 H (22.0-30.0) sec Glucose 108 H (74-99) mg/dL Calcium 8.1 L (8.4-10.2) mg/dL Total Protein 5.6 L (6.3-8.2) g/dL Albumin 2.8 L (3.5-5.0) g/dL Assessment and Plan Assessment: 1. Hemodynamically severe Left ICA stenosis 2. Altered mental status changes, acute ischemic infarct involving left opercular cortex 3. Tobacco abuse 4. Acute Covid 19 infection 5. Elevated troponins Plan: Patient will benefit from carotid intervention once medically and cardiac cleared. This certainly can be done as an outpatient and patient actually prefers seeing his Dr. Davin Briones who has done previous revascularization on him and has been established with him further 17 years. States he has an appointment with Dr. Briones on 05/19/2023. Continue with recommendations from neurology. Recommend tobacco cessation. Discussed with patient he may follow- up with vascular surgery if he is not able to get him with Dr. Briones. Will add to discharge summary to follow-up as needed within the next 1-2 weeks. She is clear from vascular surgery for discharge. The impression and plan of care has been dictated as directed. I performed a history and examination of this patient, discussed the same with the dictator. I agree with the dictator's note ,documented as a scribe. Any additional findings or plans will be noted.
--- NOTE | 2023-05-12 12:00 | P.PN ---
Subjective HISTORY OF PRESENT ILLNESS: 05/11/23 This is a pleasant 77-year-old gentleman with a history of hypertension and hyperlipidemia. Previously followed with Dr. Briones for cardiology last seen him in 2016 but does have an upcoming appointment on May 19. He presented with altered mental status and upper respiratory symptoms and was found to be positive for COVID-19. We were consulted for mildly elevated troponins. [place] did have an echocardiogram done as an outpatient last month which showed an ejection fraction of 35-40% with moderate pulmonary hypertension, mild MR and moderate AI. Of note he had an echocardiogram done in 2019 that showed a normal LV systolic function. He denies any complaints of chest discomfort. He's been coughing and does have some mild shortness of breath. He is overall beginning t o feel a bit better. 05/12/2023 Patient underwent MRI of the brain yesterday revealing acute ischemic infarct involving the left opercular cortex. Patient also underwent a CTA revealing 50% stenosis on the right and 50-70% stenosis on the left. Vascular surgery is following. However patient is requesting to follow up with his physician at [facility]. Repeat echocardiogram performed revealed ejection fraction 40% with global hypokinesis. Telemetry reveals sinus mechanism with heart rate in the 40s. Patient does have To the 30s. PHYSICAL EXAM: VITAL SIGNS: Reviewed. GENERAL: Well-developed in no acute distress. NECK: Supple. No JVD or thyromegaly LUNGS: Respirations even and unlabored. Lungs essentially clear to auscultation bilaterally. HEART: Regular rate and rhythm. S1 and S2 heard. EXTREMITIES: Normal range of motion. No clubbing or cyanosis. Peripheral pulses intact. No lower extremity edema ASSESSMENT: #1 acute COVID-19 infection #2 elevated troponin, likely secondary to above, not consistent with acute coronary event #3 cardiomyopathy, unspecified type, EF 35-40% #4 hypertension #5 hyperlipidemia #6 Sinus bradycardia #7 left internal carotid artery stenosis #8 acute CVA PLAN: Discontinue beta caden secondary to bradycardia Continue additional cardiac medications Patient is currently stable for discharge today from a cardiac perspective Patient to follow-up post discharge with his primary tree chipper at [facility] Nurse practitioner note has been reviewed by physician. Signing provider agrees with the documented findings, assessment, and plan of care. Objective - Vital Signs Vital signs: Vital Signs Temp 98.3 F 05/11/23 23:42 Pulse 52 L 05/12/23 08:00 Resp 16 05/12/23 08:00 BP 108/56 05/12/23 08:00 Pulse Ox 97 05/12/23 08:00 FiO2 Intake & Output 05/11/23 05/12/23 05/12/23 18:59 06:59 18:59 Intake Total 118 10 118 Balance 118 10 118 Intake: IV 10 Invasive Line 1 10 Oral 118 118 Other: Voiding Method Toilet Toilet Toilet Urinal # Voids 3 1 5 - Labs CBC & Chem 7: 05/11/23 08:36 05/11/23 08:36
[2023-05-12 16:20] VITALS: BP 136/63; PULSE 46
[2023-05-12] MEDS ORDERED: CLOPIDOGREL 75 MG TAB PO SCH (18:00)
[2023-05-12] MEDS ORDERED: ATORVASTATIN 40 MG TAB PO SCH (21:00)
== END 2023-05-12 18:27 | disposition home health service (06) | DRG 64 ==
LOC: EC 16:28 → 3SCARD 20:30 → OBSVTOIN 05-09 12:52
PROVIDERS: ADMIT Family Medicine; ATTEND Family Medicine
PROC: 8E0ZXY6 Isolation (ICD-10-PCS; principal; 2023-05-08)
DX: I63.9 Cerebral infarction, unspecified (principal); G93.41 Metabolic encephalopathy; U07.1 COVID-19; I42.9 Cardiomyopathy, unspecified; I65.22 Occlusion and stenosis of left carotid artery; R47.9 Unspecified speech disturbances; R79.89 Other specified abnormal findings of blood chemistry; F17.210 Nicotine dependence, cigarettes, uncomplicated; H61.21 Impacted cerumen, right ear; J01.40 Acute pansinusitis, unspecified; J44.9 Chronic obstructive pulmonary disease, unspecified; I10 Essential (primary) hypertension; E78.5 Hyperlipidemia, unspecified; R00.1 Bradycardia, unspecified; I27.20 Pulmonary hypertension, unspecified; I08.0 Rheumatic disorders of both mitral and aortic valves; J00 Acute nasopharyngitis [common cold]; Z79.899 Other long term (current) drug therapy; Z95.828 Presence of other vascular implants and grafts
CPT/HCPCS: 36415; 70450; 70496; 70498; 70551; 71046; 71275; 80053; 80306; 80320; 81001; 82272; 82607; 82746; 84443; 84484; 85025; 85379; 85610; 85730; 87636; 93005; 93306; 93880; 93970; 96360; 96361; 99285

== ENCOUNTER 2023-05-16 18:59 | Observation (INO) | payer MEDICARE ==
[2023-05-16] MEDS ORDERED: SODIUM CHLORIDE 0.9% 1,000 ML IV STA (19:11)
[2023-05-16 19:39] LABS: Basophils # (A) 0.1 k/uL (0-0.2); Basophils % (A) 1 %; Eosinophils # (A) 0.3 k/uL (0-0.7); Eosinophils % (A) 3 %; HGB 13.3 gm/dL (13.0-17.5); Lymphocytes # (A) 2.1 k/uL (1.0-4.8); Lymphocytes % (A) 25 %; Mean Platelet Volume 7.9; Monocytes # (A) 0.5 k/uL (0-1.0); Monocytes % (A) 6 %; Neutrophils # (A) 5.1 k/uL (1.3-7.7); Neutrophils % (A) 61 %; Platelet Count 254 k/uL (150-450); RBC 4.03 m/uL (4.30-5.90); RDW 12.2 % (11.5-15.5); WBC 8.3 k/uL (3.8-10.6)
--- NOTE | 2023-05-16 19:57 | XR ---
EXAMINATION TYPE: XR chest 2V DATE OF EXAM: 05/16/2023 7:32 PM CLINICAL INDICATION:Male, 77 years old with history of syncope; COMPARISON: Chest radiographs from 05/07/2023. TECHNIQUE: XR chest 2V Frontal and lateral views of the chest. FINDINGS: Lungs/Pleura: There is flattening of the diaphragm with increased lucency of the lungs. No evidence o f pneumothorax, pleural effusion or focal consolidation. Pulmonary vascularity: Unremarkable. Heart/mediastinum: Cardiomediastinal silhouette is unremarkable. Musculoskeletal: No acute osseous pathology. Other findings: None IMPRESSION: 1. No acute cardiopulmonary disease process. 2. COPD changes.
[2023-05-16 20:00] LABS: ALT 53 U/L (4-49); AST 39 U/L (17-59); African American GFR (CKD) 69 (>60 ml/min/1.73 sqM); Albumin 3.8 g/dL (3.5-5.0); Alkaline Phosphatase 92 U/L (38-126); Anion Gap 11 mmol/L; Blood Urea Nitrogen 18 mg/dL (9-20); Calcium 8.9 mg/dL (8.4-10.2); Carbon Dioxide 22 mmol/L (22-30); Chloride 105 mmol/L (98-107); Glucose 97 mg/dL (74-99); Magnesium 2.1 mg/dL (1.6-2.3); Non-African American GFR(CKD) 60 (>60 ml/min/1.73 sqM); Potassium 3.9 mmol/L (3.5-5.1); Sodium 138 mmol/L (137-145); Total Bilirubin 0.4 mg/dL (0.2-1.3); Total Protein 6.8 g/dL (6.3-8.2)
--- NOTE | 2023-05-16 20:08 | CT ---
EXAMINATION TYPE: CT brain wo con CT DLP: 1094.4 mGycm, Automated exposure control for dose reduction was used. DATE OF EXAM: 05/16/2023 7:58 PM COMPARISON: 05/07/2023. CLINICAL INDICATION:Male, 77 years old with history of syncope, headache, Syncope, headache TECHNIQUE: Brain: Axial CT images of the brain were obtained with coronal and sagittal reformats created and rev iewed. Contrast used: None. Oral contrast used: None. FINDINGS: Brain: Extra-axial spaces: No abnormal extra-axial fluid collections. Ventricular system: Within normal limits Cerebral parenchyma: No acute intraparenchymal hemorrhage or mass effect. The melton-white junction is well differentiated. Cerebellum: Unremarkable. Mass effect: No evidence of midline shift. Intracranial vasculature: Atherosclerotic calcifications of the intracranial vessels. Soft tissues: Normal. Calvarium/osseous structures: No depressed skull fracture. Paranasal sinuses and mastoid air cells: Moderate scattered paranasal sinus disease. Visualized orbits: Orbital contents are intact. IMPRESSION: No acute intracranial process.
[2023-05-16 20:14] LABS: Partial Thromboplastin Time 23.1 sec (22.0-30.0); Prothrombin Time 10.9 sec (10.0-12.5)
[2023-05-16] MEDS ORDERED: METOCLOPRAMIDE 5 MG/ML 2 ML VIAL IVP STA (20:14)
[2023-05-16] MEDS ORDERED: diphenhydrAMINE 50 MG/ML 1 ML VIAL IVP STA (20:14)
[2023-05-16] MEDS ORDERED: KETOROLAC 15 MG/ML 1 ML VIAL IVP STA (20:15)
--- NOTE | 2023-05-16 21:27 | ED ---
General Adult HPI - General Chief complaint: Syncope Stated complaint: Near-Syncope Source: patient, EMS Mode of arrival: EMS - History of Present Illness Initial comments: 77-year-old male with recent diagnosis of CVA who presents to the emergency department after he had a syncopal episode at home. He states that he was in the dining room and got up to a bili to the kitchen. He immediately felt ligh theaded as if she was going to pass out. He also felt a room spinning sensation. He walked back into the living room and laid down on the floor. Family states that he went unresponsive for a brief second. He had some slurring to his speech. There is no trauma involved in the event. EMS arrived and found the patient to be conscious. He was bradycardic. There was no lateralizing symptoms. Patient had no speech deficit. Upon arrival to the hospital the patient is complaining of a left-sided headache. No visual changes. Denies any lateralizing weakness. Patient does take metoprolol twice daily. Upon review of the patient's discharge instructions he was supposed to discontinue this medication due to bradycardia experienced during his recent hospitalization however inadvertently this medication was still prescribed to the pharmacy. He did take a dose this morning. He denies any chest pain or shortness of breath. 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 - Related Data Home Medications Medication Instructions Recorded Confirmed Simvastatin [Zocor] 40 mg PO HS 05/07/23 05/16/23 ramipriL [Altace] 10 mg PO HS 05/07/23 05/16/23 Amoxic-Pot Clav 875-125Mg 1 tab PO Q12HR 05/16/23 05/16/23 [Augmentin 875-125] Metoprolol Tartrate [Lopressor] 25 mg PO DIRECTED 05/16/23 05/16/23 Nicotine 21Mg/24Hr Patch [Habitrol] 1 patch TRANSDERM DAILY PRN 05/16/23 05/16/23 Previous Rx's Medication Instructions Recorded Acetaminophen Tab [Tylenol] 650 mg PO Q6HR PRN tab 05/12/23 Albuterol Inhaler [Ventolin Hfa 2 puff INHALATION RT-TID PRN #1 05/12/23 Inhaler] each Aspirin 81 mg PO DAILY #30 tab 05/12/23 Clopidogrel [Plavix] 75 mg PO DAILY 30 Days tablet 05/12/23 Melatonin 3 mg PO HS PRN 30 Days #30 tab 05/12/23 guaiFENesin [Mucinex] 600 mg PO Q12HR PRN tab 05/12/23 Allergies Allergy/AdvReac Type Severity Reaction Status Date / Time No Known Allergies Allergy Verified 05/16/23 20:05 Review of Systems ROS Statement: Those systems with pertinent positive or pertinent negative responses have been documented in the HPI. ROS Other: All systems not noted in ROS Statement are negative. Past Medical History Past Medical History: Hyperlipidemia, Hypertension History of Any Multi-Drug Resistant Organisms: None Reported Additional Past Surgical History / Comment(s): Stents in legs Past Psychological History: No Psychological Hx Reported Smoking Status: Current every day smoker Past Alcohol Use History: Daily Past Drug Use History: None Reported General Exam General appearance: alert, in no apparent distress Head exam: Present: atraumatic, normocephalic, normal inspection Eye exam: Present: normal appearance, PERRL, EOMI. Absent: scleral icterus, conjunctival injection, periorbital swelling ENT exam: Present: normal exam, mucous membranes moist Neck exam: Present: normal inspection. Absent: tenderness, meningismus, lymphadenopathy Respiratory exam: Present: normal lung sounds bilaterally. Absent: respiratory distress, wheezes, rales, rhonchi, stridor Cardiovascular Exam: Present: normal rhythm, bradycardia, normal heart sounds. Absent: systolic murmur, diastolic murmur, rubs, gallop, clicks GI/Abdominal exam: Present: soft, normal bowel sounds. Absent: distended, tenderness, guarding, rebound, rigid Extremities exam: Present: normal inspection, full ROM, normal capillary refill. Absent: tenderness, pedal edema, joint swelling, calf tenderness Back exam: Present: normal inspection Neurological exam: Present: alert, oriented X3, CN II-XII intact Psychiatric exam: Present: normal affect, normal mood Skin exam: Present: warm, dry, intact, normal color. Absent: rash Course Vital Signs 05/16/23 05/16/23 05/16/23 19:09 19:49 20:42 Temperature 98.2 F Pulse Rate 40 L 53 L 68 Respiratory 17 17 17 Rate Blood Pressure 178/145 163/98 164/67 O2 Sat by Pulse 97 91 L Oximetry 05/16/23 05/16/23 21:46 23:07 Temperature 98.0 F Pulse Rate 73 44 L Respiratory 18 17 Rate Blood Pressure 129/57 148/76 O2 Sat by Pulse 96 100 Oximetry Medical Decision Making - Medical Decision Making Was pt. sent in by a medical professional or institution ([facility], CRYPTOLOGIC SUPERVISOR, urgent care, hospital, or half-way...) When possible be specific @ -No Did you speak to anyone other than the patient for history (EMS, parent, family, police, friend...)? What history was obtained from this source @ -EMS and son Did you review nursing and triage notes (agree or disagree)? Why? @ -I reviewed and agree with nursing and triage notes Were old charts reviewed (outside hosp., previous admission, EMS record, old EKG, old radiological studies, urgent care reports/EKG's, half-way records)? Report findings @ -Reviewed the patient's progress notes and discharge summary from recent hospitalization Differential Diagnosis (chest pain, altered mental status, abdominal pain women, abdominal pain men, vaginal bleeding, weakness, fever, dyspnea, syncope, headache, dizziness, GI bleed, back pain, seizure, CVA, palpatations, mental health, musculoskeletal)? @ -Differential Syncope: Valvular disease, hypertrophic cardiomyopathy, pulmonary embolism, tamponade, tachycardia, bradycardia, VT, hypovolemia, hemorrhage, dissection, anemia, intracranial hemorrhage, seizure, hypoglycemia, carbon monoxide poisoning, this is not meant to be an all-inclusive list. EKG interpreted by me (3pts min.). @ -yes and demonstrates sinus bradycardia with rate of 52. MO normal 184. QRS 90. QTC of 465. PVCs present. No high degree block present. X-rays interpreted by me (1pt min.). @ -yes and demonstrates no acute process CT interpreted by me (1pt min.). @ -Yes and demonstrates no acute intracranial process U/S interpreted by me (1pt. min.). @ -None done What testing was considered but not performed or refused? (CT, X-rays, U/S, labs)? Why? @ -None What meds were considered but not given or refused? Why? @ -None Did you discuss the management of the patient with other professionals (professionals i.e. [employer] Miller, CRYPTOLOGIC SUPERVISOR, lab, RT, psych nurse, foster care social worker, sql bi developer, teacher, strategic debriefing officer, shelter case manager)? Give summary @ -Spoke with Dr. brown who was agreeable to admit the patient Was smoking cessation discussed for >3mins.? @ -No Was critical care preformed (if so, how long)? @ -No Were there social determinants of health that impacted care today? How? (Homelessness, low income, unemployed, alcoholism, drug addiction, transportation, low edu. Level, literacy, decrease access to med. care, senior living, rehab)? @ -No Was there de-escalation of care discussed even if they declined (Discuss DNR or withdrawal of care, Hospice)? DNR status @ -No What co-morbidities impacted this encounter? (DM, HTN, Smoking, COPD, CAD, Cancer, CVA, ARF, Chemo, Hep., AIDS, mental health diagnosis, sleep apnea, morbid obesity)? @ -CVA, hypertension Was patient admitted / discharged? Hospital course, mention meds given and route, prescriptions, significant lab abnormalities, going to OR and other pertinent info. @ -Upon arrival patient placed in room 3. Thorough history and physical exam is performed. Patient placed on continuous pulse ox and cardiac monitoring. Patient significantly bradycardic. He was given Toradol, Reglan and Benadryl for his headache with improvement. Lab studies are conducted. Chest x-ray and CT of the brain was done. Results are discussed with the patient. Recommended admission due to significant bradycardia with syncope. Patient was agreeable to this plan. Spoke with Dr. brown who agreed to admission Undiagnosed new problem with uncertain prognosis? @ -yes Drug Therapy requiring intensive monitoring for toxicity (Heparin, Nitro, Insulin, Cardizem)? @ -No Were any procedures done? @ -No Diagnosis/symptom? @ -Acute syncope, acute bradycardia Acute, or Chronic, or Acute on Chronic? @ -Acute Uncomplicated (without systemic symptoms) or Complicated (systemic symptoms)? @ -Complicated Side effects of treatment? @ -No Exacerbation, Progression, or Severe Exacerbation? @ -No Poses a threat to life or bodily function? How? (Chest pain, USA, VT, pneumonia, PE, COPD, DKA, ARF, appy, cholecystitis, CVA, Diverticulitis, Homicidal, Suicidal, threat to staff... and all critical care pts) @ -No - Lab Data Result diagrams: 05/16/23 19:14 05/16/23 19:14 Lab Results 05/16/23 05/16/23 05/16/23 Range/Units 19:14 19:14 19:14 WBC 8.3 (3.8-10.6) k/uL RBC 4.03 L (4.30-5.90) m/uL Hgb 13.3 (13.0-17.5) gm/dL Hct 39.0 (39.0-53.0) % MCV 97.0 (80.0-100.0) fL MCH 33.0 (25.0-35.0) pg MCHC 34.0 (31.0-37.0) g/dL RDW 12.2 (11.5-15.5) % Plt Count 254 (150-450) k/uL MPV 7.9 Neutrophils % 61 % Lymphocytes % 25 % Monocytes % 6 % Eosinophils % 3 % Basophils % 1 % Neutrophils # 5.1 (1.3-7.7) k/uL Lymphocytes # 2.1 (1.0-4.8) k/uL Monocytes # 0.5 (0-1.0) k/uL Eosinophils # 0.3 (0-0.7) k/uL Basophils # 0.1 (0-0.2) k/uL PT 10.9 (10.0-12.5) sec INR 1.0 (<1.2) APTT 23.1 (22.0-30.0) sec Sodium 138 (137-145) mmol/L Potassium 3.9 (3.5-5.1) mmol/L Chloride 105 (98-107) mmol/L Carbon Dioxide 22 (22-30) mmol/L Anion Gap 11 mmol/L BUN 18 (9-20) mg/dL Creatinine 1.17 (0.66-1.25) mg/dL Est GFR (CKD-EPI)AfAm 69 (>60 ml/min/1.73 sqM) Est GFR (CKD-EPI)NonAf 60 (>60 ml/min/1.73 sqM) Glucose 97 (74-99) mg/dL Calcium 8.9 (8.4-10.2) mg/dL Magnesium 2.1 (1.6-2.3) mg/dL Total Bilirubin 0.4 (0.2-1.3) mg/dL AST 39 (17-59) U/L ALT 53 H (4-49) U/L Alkaline Phosphatase 92 (38-126) U/L Troponin I (0.000-0.034) ng/mL Total Protein 6.8 (6.3-8.2) g/dL Albumin 3.8 (3.5-5.0) g/dL TSH 8.550 H (0.465-4.680) mIU/L Free T4 1.06 (0.78-2.19) ng/dL 05/16/23 Range/Units 19:14 WBC (3.8-10.6) k/uL RBC (4.30-5.90) m/uL Hgb (13.0-17.5) gm/dL Hct (39.0-53.0) % MCV (80.0-100.0) fL MCH (25.0-35.0) pg MCHC (31.0-37.0) g/dL RDW (11.5-15.5) % Plt Count (150-450) k/uL MPV Neutrophils % % Lymphocytes % % Monocytes % % Eosinophils % % Basophils % % Neutrophils # (1.3-7.7) k/uL Lymphocytes # (1.0-4.8) k/uL Monocytes # (0-1.0) k/uL Eosinophils # (0-0.7) k/uL Basophils # (0-0.2) k/uL PT (10.0-12.5) sec INR (<1.2) APTT (22.0-30.0) sec Sodium (137-145) mmol/L Potassium (3.5-5.1) mmol/L Chloride (98-107) mmol/L Carbon Dioxide (22-30) mmol/L Anion Gap mmol/L BUN (9-20) mg/dL Creatinine (0.66-1.25) mg/dL Est GFR (CKD-EPI)AfAm (>60 ml/min/1.73 sqM) Est GFR (CKD-EPI)NonAf (>60 ml/min/1.73 sqM) Glucose (74-99) mg/dL Calcium (8.4-10.2) mg/dL Magnesium (1.6-2.3) mg/dL Total Bilirubin (0.2-1.3) mg/dL AST (17-59) U/L ALT (4-49) U/L Alkaline Phosphatase (38-126) U/L Troponin I 0.035 H* (0.000-0.034) ng/mL Total Protein (6.3-8.2) g/dL Albumin (3.5-5.0) g/dL TSH (0.465-4.680) mIU/L Free T4 (0.78-2.19) ng/dL Disposition Clinical Impression: Syncope, Bradycardia Disposition: ADMITTED IP TO THIS [facility] Condition: Stable Is patient prescribed a controlled substance at d/c from ED?: No Time of Disposition: 21:50 Decision to Admit Reason: Admit from EC Decision Date: 05/16/23 Decision Time: 21:50
[2023-05-16 22:34] LABS: T4, Free (Free Thyroxine) 1.06 ng/dL (0.78-2.19)
[2023-05-16] MEDS ORDERED: NALOXONE 0.4 MG/ML 1 ML VIAL IV PRN (22:34)
[2023-05-16] MEDS: SODIUM CHLORIDE 0.9% 1,000 ML IV SCH (22:58)
[2023-05-16] MEDS ORDERED: guaiFENesin 600 MG TABLET.ER PO PRN (23:29)
[2023-05-16] MEDS ORDERED: MELATONIN 3 MG TABLET PO PRN (23:29)
[2023-05-16] MEDS ORDERED: ALBUTEROL NEBULIZED 2.5 MG/3 ML INHALATION PRN (23:29)
[2023-05-16] MEDS ORDERED: NICOTINE 21MG/24HR PATCH TRANSDERM PRN (23:29)
[2023-05-17 08:35] LABS: Basophils # (A) 0.1 k/uL (0-0.2); Basophils % (A) 1 %; Eosinophils # (A) 0.2 k/uL (0-0.7); Eosinophils % (A) 2 %; HGB 12.4 gm/dL (13.0-17.5); Lymphocytes # (A) 1.9 k/uL (1.0-4.8); Lymphocytes % (A) 26 %; MCH 32.7 pg (25.0-35.0); MCHC 33.5 g/dL (31.0-37.0); MCV 97.5 fL (80.0-100.0); Mean Platelet Volume 8.3; Monocytes # (A) 0.6 k/uL (0-1.0); Monocytes % (A) 8 %; Neutrophils # (A) 4.4 k/uL (1.3-7.7); Neutrophils % (A) 60 %; Platelet Count 237 k/uL (150-450); RDW 12.8 % (11.5-15.5); WBC 7.3 k/uL (3.8-10.6)
[2023-05-17 08:38] LABS: African American GFR (CKD) 72 (>60 ml/min/1.73 sqM); Anion Gap 12 mmol/L; Blood Urea Nitrogen 18 mg/dL (9-20); Calcium 8.3 mg/dL (8.4-10.2); Carbon Dioxide 19 mmol/L (22-30); Chloride 109 mmol/L (98-107); Glucose 77 mg/dL (74-99); Non-African American GFR(CKD) 63 (>60 ml/min/1.73 sqM); Potassium 4.3 mmol/L (3.5-5.1); Sodium 140 mmol/L (137-145)
[2023-05-17] MEDS ORDERED: AMOXIC-POT CLAV 875-125MG 1 EACH TAB PO SCH (09:00)
[2023-05-17] MEDS: ASPIRIN 81 MG PO SCH (11:00)
[2023-05-17] MEDS: CLOPIDOGREL 75 MG TAB PO SCH (11:00)
--- NOTE | 2023-05-17 12:15 | P.HPIM ---
History of Present Illness H&P Date: 05/17/23 History of present illness; patient is 77-year-old gentleman with past medical history significant for CVA, hyperlipidemia, hypertension who presented to the ER for a syncopal episode. Patient stated he was all right yesterday when while trying to go to the kitchen and suddenly felt lightheaded and had a feeling that he did not pass out. Patient laid on the floor and family for a short time noticed that the patient was not responding. They also noted the patient's speech was slurred. EMS was called by the time EMS reached patient is back to normal. There was no weakness of any extremity. No complain of fecal or urine incontinence. Denies any chest pain or shortness of breath. Because this syncopal episode, patient was brought to the ER Initial lab work done in the ER showed WBC 7.3, hemoglobin 12.4, platelet count 237, sodium 140, potassium 4.3, BUN 18, crit 1.13 EKG done in the ER showed heart rate of 52 , no ST segment elevation or depression seen, no T-wave inversions seen. Occasional PVC seen CT head done showed no acute intracranial process Chest x-ray done showed no acute cardiac program process Patient admitted to internal medicine service REVIEW OF SYSTEMS: CONSTITUTIONAL: No fever, no malaise, no fatigue. HEENT: No recent visual problems or hearing problems. Denied any sore throat. CARDIOVASCULAR: No chest pain, orthopnea, PND, no palpitations, no syncope. PULMONARY: No shortness of breath, no cough, no hemoptysis. GASTROINTESTINAL: No diarrhea, no nausea, no vomiting, no abdominal pain. NEUROLOGICAL: No headaches, no weakness, no numbness. HEMATOLOGICAL: Denies any bleeding or petechiae. GENITOURINARY: Denies any burning micturition, frequency, or urgency. MUSCULOSKELETAL/RHEUMATOLOGICAL: Denies any joint pain, swelling, or any muscle pain. ENDOCRINE: Denies any polyuria or polydipsia. The rest of the 14-point review of systems is negative. PHYSICAL EXAMINATION: GENERAL: The patient is alert and oriented x3, not in any acute distress. Well developed, well nourished. HEENT: Pupils are round and equally reacting to light. EOMI. No scleral icterus. No conjunctival pallor. Normocephalic, atraumatic. No pharyngeal erythema. No thyromegaly. CARDIOVASCULAR: S1 and S2 present. No murmurs, rubs, or gallops. PULMONARY: Chest is clear to auscultation, no wheezing or crackles. ABDOMEN: Soft, nontender, nondistended, normoactive bowel sounds. No palpable organomegaly. MUSCULOSKELETAL: No joint swelling or deformity. EXTREMITIES: No cyanosis, clubbing, or pedal edema. NEUROLOGICAL: Gross neurological examination did not reveal any focal deficits. SKIN: No rashes. Assessment and plan Syncope cardiomyopathy, unspecified type, EF 35-40% hypertension hyperlipidemia Sinus bradycardia left internal carotid artery stenosis acute CVA Monitor vital signs Monitor CBC Monitor CMP Continue telemetry monitoring Fall precautions Avoid AV jeana blocking agents Check orthostatics continue IV fluids Continue aspirin Plavix Resume home meds Consult cardiology Labs and medication were reviewed.. Continue same treatment. Continue with symptomatic treatment. Resume home medication. Monitor labs and vitals. DVT and GI prophylaxis. Further recommendations as per clinical course of the patient Dictation was produced using [employer] dictation software. please excuse any grammatical, word or spelling errors. Past Medical History Past Medical History: Hyperlipidemia, Hypertension History of Any Multi-Drug Resistant Organisms: None Reported Additional Past Surgical History / Comment(s): Stents in legs Past Psychological History: No Psychological Hx Reported Smoking Status: Current every day smoker Past Alcohol Use History: Daily Past Drug Use History: None Reported Medications and Allergies Home Medications Medication Instructions Recorded Confirmed Type Simvastatin [Zocor] 40 mg PO HS 05/07/23 05/16/23 History ramipriL [Altace] 10 mg PO HS 05/07/23 05/16/23 History Acetaminophen Tab [Tylenol] 650 mg PO Q6HR PRN tab 05/12/23 05/16/23 Rx Albuterol Inhaler [Ventolin Hfa 2 puff INHALATION RT-TID PRN #1 05/12/23 05/16/23 Rx Inhaler] each Aspirin 81 mg PO DAILY #30 tab 05/12/23 05/16/23 Rx Clopidogrel [Plavix] 75 mg PO DAILY 30 Days tablet 05/12/23 05/16/23 Rx Melatonin 3 mg PO HS PRN 30 Days #30 tab 05/12/23 05/16/23 Rx guaiFENesin [Mucinex] 600 mg PO Q12HR PRN tab 05/12/23 05/16/23 Rx Amoxic-Pot Clav 875-125Mg 1 tab PO Q12HR 05/16/23 05/16/23 History [Augmentin 875-125] Metoprolol Tartrate [Lopressor] 25 mg PO DIRECTED 05/16/23 05/16/23 History Nicotine 21Mg/24Hr Patch [Habitrol] 1 patch TRANSDERM DAILY PRN 05/16/23 05/16/23 History Allergies Allergy/AdvReac Type Severity Reaction Status Date / Time No Known Allergies Allergy Verified 05/16/23 20:05 Physical Exam Vitals: Vital Signs Temp Pulse Pulse Resp BP BP Pulse Ox 05/17/23 04:00 98.4 F 63 16 110/53 97 05/17/23 02:00 48 L 16 05/17/23 00:00 98 F 48 L 16 158/68 95 05/16/23 23:07 98.0 F 44 L 17 148/76 100 05/16/23 22:42 98 F 48 L 16 158/68 95 05/16/23 21:46 73 18 129/57 96 05/16/23 20:42 68 17 164/67 91 L 05/16/23 19:49 53 L 17 163/98 05/16/23 19:09 98.2 F 40 L 17 178/145 97 Intake and Output 05/16/23 05/17/23 05/17/23 22:59 06:59 14:59 Intake Total 540 Balance 540 Intake: Oral 540 Other: Weight 52.163 kg Results CBC & Chem 7: 05/17/23 07:37 05/17/23 07:37 Labs: Abnormal Lab Results - Last 24 Hours (Table) 05/16/23 05/16/23 05/16/23 Range/Units 19:14 19:14 19:14 RBC 4.03 L (4.30-5.90) m/uL Hgb (13.0-17.5) gm/dL Hct (39.0-53.0) % Chloride (98-107) mmol/L Carbon Dioxide (22-30) mmol/L Calcium (8.4-10.2) mg/dL ALT 53 H (4-49) U/L Troponin I 0.035 H* (0.000-0.034) ng/mL TSH 8.550 H (0.465-4.680) mIU/L 05/17/23 05/17/23 Range/Units 07:37 07:37 RBC 3.80 L (4.30-5.90) m/uL Hgb 12.4 L (13.0-17.5) gm/dL Hct 37.0 L (39.0-53.0) % Chloride 109 H (98-107) mmol/L Carbon Dioxide 19 L (22-30) mmol/L Calcium 8.3 L (8.4-10.2) mg/dL ALT (4-49) U/L Troponin I (0.000-0.034) ng/mL TSH (0.465-4.680) mIU/L Thrombosis Risk Factor Assmnt - Choose All That Apply Any of the Below Risk Factors Present?: No Other Risk Factors: No Other congenital or acquired thrombophilia - If yes, enter type in comment: No Each Risk Factor Represents 5 Points: Stroke (< 1 month) Thrombosis Risk Factor Assessment Total Risk Factor Score: 5 Thrombosis Risk Factor Assessment Level: High Risk
[2023-05-17] MEDS: ACETAMINOPHEN TAB 325 MG TAB PO PRN ×2 (13:44→21:07)
[2023-05-17] MEDS: SODIUM CHLORIDE 0.9% 1,000 ML IV SCH (15:08)
[2023-05-17] MEDS: lisinopriL 20 MG TAB PO SCH (21:07)
[2023-05-18] MEDS: SODIUM CHLORIDE 0.9% 1,000 ML IV SCH ×2 (02:36→18:06)
[2023-05-18] MEDS: ASPIRIN 81 MG PO SCH (08:41)
[2023-05-18] MEDS: CLOPIDOGREL 75 MG TAB PO SCH (08:41)
--- NOTE | 2023-05-18 08:52 | P.PN ---
Subjective Progress Note Date: 05/18/23 Principal diagnosis: bradycardia This is a 77-year-old male with a past medical history for CVA, hyperlipidemia, hypertension who presented originally to the emergency room for syncopal episode. Was recently admitted to hospital and discharged and was supposed to stop his beta caden. However he did continue to take his beta caden. Heart rate still in the low 50s, has dipped into the 40s overnight. Patient is seen and evaluated laying in bed. He is tolerating diet, reports he feels well Objective - Vital Signs Vital signs: Vital Signs Temp 97.1 F L 05/18/23 08:39 Pulse 53 L 05/18/23 08:39 Resp 16 05/18/23 08:39 BP 157/78 05/18/23 08:39 Pulse Ox 96 05/18/23 08:39 FiO2 Intake & Output 05/17/23 05/18/23 05/18/23 18:59 06:59 18:59 Intake Total 236 440 Balance 236 440 Intake: Oral 236 440 Other: Voiding Method Toilet Urinal # Voids 1 - Constitutional General appearance: Present: cooperative, no acute distress - EENT Eyes: Present: PERRLA - Neck Neck: Present: normal ROM. Absent: lymphadenopathy, rigidity - Respiratory Respiratory: bilateral: CTA - Cardiovascular Rhythm: regular Heart sounds: normal: S1, S2 - Gastrointestinal General gastrointestinal: Present: soft. Absent: tenderness - Integumentary Integumentary: Present: normal, normal turgor - Psychiatric Psychiatric: Present: A&O x's 3, appropriate affect, intact judgment & insight - Labs CBC & Chem 7: 05/17/23 07:37 05/17/23 07:37 Assessment and Plan (1) Bradycardia Current Visit: Yes Status: Acute Code(s): R00.1 - BRADYCARDIA, UNSPECIFIED SNOMED Code(s): 35141876 (2) Syncope Current Visit: Yes Status: Acute Code(s): R55 - SYNCOPE AND COLLAPSE SNOMED Code(s): 108713023 (3) Cardiomyopathy Current Visit: Yes Status: Acute Code(s): I42.9 - CARDIOMYOPATHY, UNSPECIFIED SNOMED Code(s): 76973121 (4) Hypertension Current Visit: Yes Status: Acute Code(s): I10 - ESSENTIAL (PRIMARY) HYPERT ENSION SNOMED Code(s): 94049384 (5) Hyperlipemia Current Visit: Yes Status: Acute Code(s): E78.5 - HYPERLIPIDEMIA, UNSPECIFIED SNOMED Code(s): 07741190 (6) History of CVA (cerebrovascular accident) Current Visit: Yes Status: Acute Code(s): Z86.73 - PRSNL HX OF TIA (TIA), AND CEREB INFRC W/O RESID DEFICITS SNOMED Code(s): 763278912 Plan: Pt still bradycardic Continue to monitor HR Possible discharge tomorrow if HR improves Patient seen and evaluated by nurse practitioner, physician in agreement with plan
--- NOTE | 2023-05-18 12:06 | P.CRDCN ---
History of Present Illness Consult date: 05/18/23 History of present illness: History of present illness: This is a 77-year-old male follows with manager meat, Dr. Terrell Briones and has appointment tomorrow but has not seen him for the past 3-4 years. He has a past medical history of hypertension, hyperlipidemia. Patient was recently hospitalized on May 07 through May 12 at which time he was seen by cardiology for elevated troponin most likely due to Covid 19 infection, cardiomyopathy. Patient was discharged home on a beta caden unsure patient has been taking it but this was subsequently discontinued after discharge. Patient states that he had episode where he was feeling dizzy and was swaying but no loss of consciousness and decided to lay himself down on the floor. He denies having any palpitations. Afterwards he did have a headache and patient came into the emergency center for further evaluation. Heart rate noted to be in the 40s. EKG sinus rhythm with PVCs, no acute findings Chest x-ray: No acute process CAT scan of the brain no acute process WBC 7.3, hemoglobin 12.4, platelet count 237. Sodium 140, potassium 4.3, CO2 19, BUN 18 and creatinine 1.13. Magnesium 2.1. Troponin 0.035. ALT 53 otherwise liver function tests are normal. TSH 8.55 and free T4 1.06. Home cardiac medications: Aspirin 81 mg daily, Plavix 75 mg daily, ramipril 10 mg at bedtime, simvastatin 40 mg at bedtime. Echocardiogram performed 05/11/2023 revealed EF 40%. Review Of Systems: At the time of my exam: CONSTITUTIONAL: Denies fever or chills. CARDIOVASCULAR: Denies chest pain, Denies shortness of breath, no orthopnea, PND or palpitations. RESPIRATORY: Denies cough. GASTROINTESTINAL: Denies abdominal pain, diarrhea, constipation, nausea or vomiting. MUSCULOSKELETAL: Denies myalgias. NEUROLOGIC: Denies numbness, tingling or weakness. ENDOCRINE: Denies fatigue, weight change, polydipsia or polyurina. GENITOURINARY: Denies burning, hematuria or urgency with micturation. HEMATOLOGIC: Denies history of anemia or bleeding. Physical examination: Gen: This is a 77-year-old male. He is resting in bed and appears to be in no acute distress. VS: reviewed HEENT: Head is atraumatic, normocephalic. Pupils equal, round. Sclerae is anicteric. NECK: Supple. No JVD. LUNGS: Clear to auscultation. No wheezes or rhonchi. No intercostal retractions. HEART: Regular rate and rhythm. No murmur. ABDOMEN: Soft No tenderness. EXTREMITIES: No pedal edema. No calf tenderness. NEUROLOGICAL: Patient is awake, alert and oriented x3. Assessment: Near syncopal episode with dizziness most likely orthostatic changes Hyperthyroidism-attending to address Hypertension Hyperlipidemia Cardiomyopathy Recent Covid 19 Plan: Discontinue beta caden may consider starting Coreg in the future if lizzette ycardia is improved Continue telemetry monitoring and close monitoring of blood pressure Recommended postponing follow-up with his manager meat until next week. No need to repeat echocardiogram Further recommendations to follow based upon clinical course Thank you kindly for this consultation. Nurse practitioner note has been reviewed, I agree with documented findings and plan of care. Patient was seen and examined. Past Medical History Past Medical History: Hyperlipidemia, Hypertension History of Any Multi-Drug Resistant Organisms: None Reported Additional Past Surgical History / Comment(s): Stents in legs Past Psychological History: No Psychological Hx Reported Smoking Status: Current every day smoker Past Alcohol Use History: Daily Past Drug Use History: None Reported Medications and Allergies Home Medications Medication Instructions Recorded Confirmed Type Simvastatin [Zocor] 40 mg PO HS 05/07/23 05/16/23 History ramipriL [Altace] 10 mg PO HS 05/07/23 05/16/23 History Acetaminophen Tab [Tylenol] 650 mg PO Q6HR PRN tab 05/12/23 05/16/23 Rx Albuterol Inhaler [Ventolin Hfa 2 puff INHALATION RT-TID PRN #1 05/12/23 05/16/23 Rx Inhaler] each Aspirin 81 mg PO DAILY #30 tab 05/12/23 05/16/23 Rx Clopidogrel [Plavix] 75 mg PO DAILY 30 Days tablet 05/12/23 05/16/23 Rx Melatonin 3 mg PO HS PRN 30 Days #30 tab 05/12/23 05/16/23 Rx guaiFENesin [Mucinex] 600 mg PO Q12HR PRN tab 05/12/23 05/16/23 Rx Amoxic-Pot Clav 875-125Mg 1 tab PO Q12HR 12/31/23 12/31/23 History [Augmentin 875-125] Nicotine 21Mg/24Hr Patch [Habitrol] 1 patch TRANSDERM DAILY PRN 05/16/23 05/16/23 History Allergies Allergy/AdvReac Type Severity Reaction Status Date / Time No Known Allergies Allergy Verified 05/16/23 20:05 Physical Exam Vitals: Vital Signs Temp Pulse Resp BP Pulse Ox 05/18/23 04:00 97.9 F 50 L 16 123/66 97 05/18/23 00:00 97.5 F L 47 L 16 146/73 98 05/17/23 20:00 98.7 F 51 L 16 156/80 97 05/17/23 15:41 98.2 F 48 L 18 143/68 95 05/17/23 14:00 48 L 05/17/23 10:58 98.1 F 48 L 18 127/65 98 Intake and Output 05/17/23 05/18/23 05/18/23 22:59 06:59 14:59 Intake Total 358 200 Balance 358 200 Intake: Oral 358 200 Other: Voiding Method Toilet Toilet Urinal Urinal # Voids 1 Results 05/17/23 07:37 05/17/23 07:37 Cardiac Enzymes 05/16/23 05/16/23 05/16/23 Range/Units 19:14 19:14 19:14 WBC 8.3 (3.8-10.6) k/uL RBC 4.03 L (4.30-5.90) m/uL Hgb 13.3 (13.0-17.5) gm/dL Hct 39.0 (39.0-53.0) % MCV 97.0 (80.0-100.0) fL MCH 33.0 (25.0-35.0) pg MCHC 34.0 (31.0-37.0) g/dL RDW 12.2 (11.5-15.5) % Plt Count 254 (150-450) k/uL MPV 7.9 Neutrophils % 61 % Lymphocytes % 25 % Monocytes % 6 % Eosinophils % 3 % Basophils % 1 % Neutrophils # 5.1 (1.3-7.7) k/uL Lymphocytes # 2.1 (1.0-4.8) k/uL Monocytes # 0.5 (0-1.0) k/uL Eosinophils # 0.3 (0-0.7) k/uL Basophils # 0.1 (0-0.2) k/uL PT 10.9 (10.0-12.5) sec INR 1.0 (<1.2) APTT 23.1 (22.0-30.0) sec Sodium 138 (137-145) mmol/L Potassium 3.9 (3.5-5.1) mmol/L Chloride 105 (98-107) mmol/L Carbon Dioxide 22 (22-30) mmol/L Anion Gap 11 mmol/L BUN 18 (9-20) mg/dL Creatinine 1.17 (0.66-1.25) mg/dL Est GFR (CKD-EPI)AfAm 69 (>60 ml/min/1.73 sqM) Est GFR (CKD-EPI)NonAf 60 (>60 ml/min/1.73 sqM) Glucose 97 (74-99) mg/dL Calcium 8.9 (8.4-10.2) mg/dL Magnesium 2.1 (1.6-2.3) mg/dL Total Bilirubin 0.4 (0.2-1.3) mg/dL ALT 53 H (4-49) U/L Alkaline Phosphatase 92 (38-126) U/L Total Protein 6.8 (6.3-8.2) g/dL Albumin 3.8 (3.5-5.0) g/dL TSH 8.550 H (0.465-4.680) mIU/L Free T4 1.06 (0.78-2.19) ng/dL 05/17/23 05/17/23 Range/Units 07:37 07:37 WBC 7.3 (3.8-10.6) k/uL RBC 3.80 L (4.30-5.90) m/uL Hgb 12.4 L (13.0-17.5) gm/dL Hct 37.0 L (39.0-53.0) % MCV 97.5 (80.0-100.0) fL MCH 32.7 (25.0-35.0) pg MCHC 33.5 (31.0-37.0) g/dL RDW 12.8 (11.5-15.5) % Plt Count 237 (150-450) k/uL MPV 8.3 Neutrophils % 60 % Lymphocytes % 26 % Monocytes % 8 % Eosinophils % 2 % Basophils % 1 % Neutrophils # 4.4 (1.3-7.7) k/uL Lymphocytes # 1.9 (1.0-4.8) k/uL Monocytes # 0.6 (0-1.0) k/uL Eosinophils # 0.2 (0-0.7) k/uL Basophils # 0.1 (0-0.2) k/uL PT (10.0-12.5) sec INR (<1.2) APTT (22.0-30.0) sec Sodium 140 (137-145) mmol/L Potassium 4.3 (3.5-5.1) mmol/L Chloride 109 H (98-107) mmol/L Carbon Dioxide 19 L (22-30) mmol/L Anion Gap 12 mmol/L BUN 18 (9-20) mg/dL Creatinine 1.13 (0.66-1.25) mg/dL Est GFR (CKD-EPI)AfAm 72 (>60 ml/min/1.73 sqM) Est GFR (CKD-EPI)NonAf 63 (>60 ml/min/1.73 sqM) Glucose 77 (74-99) mg/dL Calcium 8.3 L (8.4-10.2) mg/dL Magnesium (1.6-2.3) mg/dL Total Bilirubin (0.2-1.3) mg/dL ALT (4-49) U/L Alkaline Phosphatase (38-126) U/L Total Protein (6.3-8.2) g/dL Albumin (3.5-5.0) g/dL TSH (0.465-4.680) mIU/L Free T4 (0.78-2.19) ng/dL Comprehensive Metabolic Panel 05/17/23 Range/Units 07:37 Sodium 140 (137-145) mmol/L Potassium 4.3 (3.5-5.1) mmol/L Chloride 109 H (98-107) mmol/L Carbon Dioxide 19 L (22-30) mmol/L BUN 18 (9-20) mg/dL Creatinine 1.13 (0.66-1.25) mg/dL Glucose 77 (74-99) mg/dL Calcium 8.3 L (8.4-10.2) mg/dL Current Medications Generic Name Dose Route Start Last Admin Trade Name Freq PRN Reason Stop Dose Admin Acetaminophen 650 mg 05/16/23 23:29 05/17/23 21:07 Acetaminophen Tab 325 Mg Tab PO 650 mg Q6HR PRN Administration Mild Pain or Fever > 100.5 Albuterol Sulfate 2.5 mg 05/16/23 23:29 Albuterol Nebulized 2.5 Mg/3 Ml INHALATION RT-TID PRN Shortness Of Breath Or Wheezing Aspirin 81 mg 05/17/23 09:00 05/17/23 11:00 Aspirin 81 Mg PO 81 mg DAILY SERJIO Administration Atorvastatin Calcium 40 mg 05/18/23 21:00 Atorvastatin 40 Mg Tab PO HS SERJIO Clopidogrel Bisulfate 75 mg 05/17/23 09:00 05/17/23 11:00 Clopidogrel 75 Mg Tab PO 75 mg DAILY SERJIO Administration Guaifenesin 600 mg 05/16/23 23:29 Guaifenesin 600 Mg Tablet.Er PO Q12HR PRN Cough Sodium Chloride 1,000 mls @ 75 mls/hr 05/16/23 22:45 05/18/23 02:36 Saline 0.9% IV Not Given .[id number] SERJIO Lisinopril 40 mg 05/17/23 21:00 05/17/23 21:07 Lisinopril 20 Mg Tab PO 40 mg HS SERJIO Administration Melatonin 3 mg 05/16/23 23:29 05/17/23 21:08 Melatonin 3 Mg Tablet PO 3 mg HS PRN Administration Insomnia Naloxone HCl 0.2 mg 05/16/23 22:34 Naloxone 0.4 Mg/Ml 1 Ml Vial IV Q2M PRN Opioid Reversal Nicotine 1 patch 05/16/23 23:29 05/17/23 13:47 Nicotine 21mg/24hr Patch TRANSDERM 1 patch DAILY PRN Administration Nicotine Cravings Intake and Output 05/17/23 05/18/23 05/18/23 22:59 06:59 14:59 Intake Total 358 200 Balance 358 200 Intake: Oral 358 200 Other: Voiding Method Toilet Toilet Urinal Urinal # Voids 1 05/17/23 07:37 05/17/23 07:37
[2023-05-18] MEDS: APIXABAN 5 MG TAB PO SCH (20:23)
[2023-05-18] MEDS: lisinopriL 20 MG TAB PO SCH (20:23)
[2023-05-18] MEDS ORDERED: ATORVASTATIN 40 MG TAB PO SCH (21:00)
[2023-05-19] MEDS: SODIUM CHLORIDE 0.9% 1,000 ML IV SCH (05:34)
[2023-05-19] MEDS: APIXABAN 5 MG TAB PO SCH (08:21)
[2023-05-19] MEDS: CLOPIDOGREL 75 MG TAB PO SCH (08:21)
[2023-05-19 09:21] VITALS: BP 144/78; PULSE 59; RESP 16; TEMP 98.2
--- NOTE | 2023-05-19 13:45 | P.PN ---
Subjective Progress Note Date: 05/19/23 History of present illness: This is a 77-year-old male follows with clinical research tech, Dr. Terrell Briones and has ap pointment tomorrow but has not seen him for the past 3-4 years. He has a past medical history of hypertension, hyperlipidemia. Patient was recently hospitalized on May 07 through May 12 at which time he was seen by cardiology for elevated troponin most likely due to Covid 19 infection, c ardiomyopathy. Patient was discharged home on a beta caden unsure patient has been taking it but this was subsequently discontinued after discharge. Patient states that he had episode where he was feeling dizzy and was swaying but no loss of consciousness and decided to lay himself down on the floor. He denies having any palpitations. Afterwards he did have a headache and patient came into the emergency center for further evaluation. Heart rate noted to be in the 40s. EKG sinus rhythm with PVCs, no acute findings Chest x-ray: No acute process CAT scan of the brain no acute process WBC 7.3, hemoglobin 12.4, platelet count 237. Sodium 140, potassium 4.3, CO2 19, BUN 18 and creatinine 1.13. Magnesium 2.1. Troponin 0.035. ALT 53 otherwise liver function tests are normal. TSH 8.55 and free T4 1.06. Home cardiac medications: Aspirin 81 mg daily, Plavix 75 mg daily, ramipril 10 mg at bedtime, simvastatin 40 mg at bedtime. Echocardiogram performed 05/11/2023 revealed EF 40%. 1/3 Patient is seen today in follow-up. He had an episode yesterday of atrial fibrillation lasting for about 1-1/2 hours. He was not previously on a beta caden due to bradycardia. Patient states that he is feeling better now than he has in a week. He had no symptoms during the episode of atrial fibrillation. Patient was started on eliquis yesterday afternoon. Physical examination: Gen: This is a 77-year-old male. He is resting in bed and appears to be in no acute distress. VS: reviewed HEENT: Head is atraumatic, normocephalic. Pupils equal, round. Sclerae is anicteric. NECK: Supple. No JVD. LUNGS: Clear to auscultation. No wheezes or rhonchi. No intercostal retractions. HEART: Regular rate and rhythm. No murmur. ABDOMEN: Soft No tenderness. EXTREMITIES: No pedal edema. No calf tenderness. NEUROLOGICAL: Patient is awake, alert and oriented x3. Assessment: Near syncopal episode with dizziness most likely orthostatic changes New-onset atrial fibrillation, paroxysmal Hyperthyroidism-attending to address Hypertension Hyperlipidemia Cardiomyopathy Recent Covid 19 Plan: Discontinue beta caden may consider starting Coreg in the future if bradycardia is improved Continue eliquis at time of discharge Follow-up with his clinical research tech next week is rescheduled. Nurse practitioner note has been reviewed, I agree with documented findings and plan of care. Patient was seen and examined. Objective - Vital Signs Vital signs: Vital Signs Temp 98.2 F 05/19/23 08:17 Pulse 59 L 05/19/23 08:17 Resp 16 05/19/23 08:17 BP 144/78 05/19/23 08:17 Pulse Ox 99 05/19/23 08:17 FiO2 Intake & Output 05/18/23 05/19/23 05/19/23 18:59 06:59 18:59 Intake Total 360 10 128 Balance 360 10 128 Intake: IV 10 10 0.9 10 Invasive Line 1 10 Oral 360 118 Other: Voiding Method Toilet Toilet Toilet Urinal Urinal Urinal # Voids 2 - Labs CBC & Chem 7: 05/17/23 07:37 05/17/23 07:37
--- NOTE | 2023-05-19 20:23 | P.DS ---
Providers Date of admission: 05/16/23 22:35 Attending physician: Ren Avelar Consults: 05/17/23 09:16 Consult Physician Routine Consulting Provider: Aubrey Connell Consult Reason/Comments: Syncope, bradycardia Do you want consulting provider notified?: Yes Primary care physician: Ren Avelar - Discharge Diagnosis(es) (1) Bradycardia Status: Acute (2) Cardiomyopathy Status: Acute (3) History of CVA (cerebrovascular accident) Status: Acute (4) Hyperlipemia Status: Acute (5) Hypertension Status: Acute Hospital Course: This is discharge from in a 77-year-old male admitted for weakness and dizziness. He recently had a small CVA last week and has carotid stenosis which he is going to get taken care of by The vascular team at [facility]. The patient was admitted and found to have significant bradycardia. Carvedilol was stopped and his heart rate started to stabilize. Cardiology was absent consulted and medication changes were made. The patient was a symptomatically without any altered mental status. Heart rate was stable enough for cardiology to discharge. The patient will follow up with me in about 1 week. He developed runs of atrial fibrillation and is now placed on Eliquis. Patient Condition at Discharge: Stable Plan - Discharge Summary New Discharge Prescriptions: New Apixaban [Eliquis] 5 mg PO BID #60 tab Atorvastatin [Lipitor] 40 mg PO HS #30 tab Continue guaiFENesin [Mucinex] 600 mg PO Q12HR PRN tab PRN Reason: Cough Acetaminophen Tab [Tylenol] 650 mg PO Q6HR PRN tab PRN Reason: Mild Pain Or Fever > 100.5 Albuterol Inhaler [Ventolin Hfa Inhaler] 2 puff INHALATION RT-TID PRN #1 each PRN Reason: Shortness Of Breath Or Wheezing Amoxic-Pot Clav 875-125Mg [Augmentin 875-125] 1 tab PO Q12HR ramipriL [Altace] 10 mg PO HS Aspirin 81 mg PO DAILY #30 tab Melatonin 3 mg PO HS PRN 30 Days #30 tab PRN Reason: Insomnia Nicotine 21Mg/24Hr Patch [Habitrol] 1 patch TRANSDERM DAILY PRN PRN Reason: Nicotine Cravings Discontinued Simvastatin [Zocor] 40 mg PO HS Clopidogrel [Plavix] 75 mg PO DAILY 30 Days tablet Metoprolol Tartrate [Lopressor] 25 mg PO DIRECTED Discharge Medication List ramipriL [Altace] 10 mg PO HS 05/07/23 [History] Acetaminophen Tab [Tylenol] 650 mg PO Q6HR PRN tab 05/12/23 [Rx] Albuterol Inhaler [Ventolin Hfa Inhaler] 2 puff INHALATION RT-TID PRN #1 each 05/12/23 [Rx] Aspirin 81 mg PO DAILY #30 tab 05/12/23 [Rx] Melatonin 3 mg PO HS PRN 30 Days #30 tab 05/12/23 [Rx] guaiFENesin [Mucinex] 600 mg PO Q12HR PRN tab 05/12/23 [Rx] Amoxic-Pot Clav 875-125Mg [Augmentin 875-125] 1 tab PO Q12HR 05/16/23 [History] Nicotine 21Mg/24Hr Patch [Habitrol] 1 patch TRANSDERM DAILY PRN 05/16/23 [History] Apixaban [Eliquis] 5 mg PO BID #60 tab 05/19/23 [Rx] Atorvastatin [Lipitor] 40 mg PO HS #30 tab 05/19/23 [Rx] Follow up Appointment(s)/Referral(s): Ren Avelar MD [Primary Care Provider] - 1 Week (Please call to schedule follow up. ) Patient Instructions/Handouts: A-fib (Atrial Fibrillation) (IP), Bradycardia (DC) Activity/Diet/Wound Care/Special Instructions: Please follow up with Dr. Briones Discharge Disposition: HOME SELF-CARE
== END 2023-05-19 11:57 | disposition home or self-care (01) ==
LOC: EC 18:59 → 3SCARD 22:35
PROVIDERS: ADMIT Family Medicine; ATTEND Family Medicine
DX: R55 Syncope and collapse (principal); R42 Dizziness and giddiness; R00.1 Bradycardia, unspecified; I65.22 Occlusion and stenosis of left carotid artery; E78.5 Hyperlipidemia, unspecified; I10 Essential (primary) hypertension; E05.90 Thyrotoxicosis, unspecified without thyrotoxic crisis or storm; I42.9 Cardiomyopathy, unspecified; I48.0 Paroxysmal atrial fibrillation; F17.200 Nicotine dependence, unspecified, uncomplicated; Z86.16 Personal history of COVID-19; Z86.73 Personal history of transient ischemic attack (TIA), and cerebral infarction without residual deficits; Z79.02 Long term (current) use of antithrombotics/antiplatelets; Z79.82 Long term (current) use of aspirin; Z79.899 Other long term (current) drug therapy
CPT/HCPCS: 96361; 96374; 96375; 99285; 36415; 93005; 84439; 80053; 80048; 84443; 83735; 84484; 85025 ×2; 85610; 85730; 71046; 70450; G0378 ×4; S4990; J1200; J2765; J1885

== ENCOUNTER → 2024-02-01 | Outpatient (CLI) | payer MEDICARE ==
--- NOTE | 2024-02-04 21:00 | US ---
EXAMINATION TYPE: US abdomen complete DATE OF EXAM: 02/01/2024 COMPARISON: NONE CLINICAL INDICATION: Male, 78 years old with history of R10.9 UNSPECIFIED ABDOMINAL PAIN; Intermitten t pain x 1 month. TECHNIQUE: Multiple sonographic images of the abdomen are obtained. FINDINGS: EXAM MEASUREMENTS: Liver Length: 13.7 cm Gallbladder Wall: 0.12 cm CBD: 0.36 cm Spleen: 8.4 cm Right Kidney: 10.0 x 5.8 x 5.1 cm Left Kidney: 7.6 x 4.0 x 4.7 cm [employer] NOTES: Limited due to gas. Pancreas: Obscured Liver: Appears wnl Gallbladder: Appears wnl Evidence for sonographic Concepcion's sign: No CBD: Appears wnl Spleen: Limited due to gas. Right Kidney: No hydronephrosis or masses seen Left Kidney: Measures small in size. Multiple hyperechoic foci seen within, largest is at the lowe r pole: 0.8 x 0.5 x 0.6 cm. Upper IVC: Appears wnl Abd Aorta: Proximal segment appears ectatic: 2.8 cm. Mid, distal, and iliacs were obscured. IMPRESSION: 1. Somewhat limited due to bowel gas. 2. No acute ultrasound abnormality of the abdomen. [facility], , 02/04/2024 8:57 PM
== END | disposition home or self-care (01) ==
LOC: RADUSWWP 08:26
PROVIDERS: ATTEND Internal Medicine Geriatric Medicine
DX: R10.9 Unspecified abdominal pain
CPT/HCPCS: 76700